=== PATIENT | female | born 1960 | race Two or more races ===

== ENCOUNTER 2017-03-27 11:36 | Observation (INO) | payer OTHER ==
[~2017-03-27] VITALS: Ht 152.4 cm; Wt 111.6 kg
[2017-03-27 12:30] LABS: Basophils # (auto) 0 uL; Basophils % (auto) 0.4 % (0.0-2.0); Eosinophils # (auto) 0.1 uL; Eosinophils % (auto) 1.8 % (0.0-7.0); Hematocrit 48.7 % (36.0-46.0); Hemoglobin 16.2 g/dL (12.2-16.2); Lymphocytes # (auto) 1.4 uL; Lymphocytes % (auto) 23.9 % (10.0-50.0); Mean Corpuscular Hemoglobin 31.1 pg (28.0-32.0); Mean Corpuscular Hgb Conc. 33.2 g/dL (32.0-36.0); Mean Corpuscular Volume 93.7 fL (80.0-100.0); Monocytes # (auto) 0.3 uL; Monocytes % (auto) 5.2 % (0.0-12.0); Neutrophils % (auto) 68.7 % (37.0-80.0); Nucleated Red Blood Cells % 0.1 %; Platelet Count (auto) 186 10^3/uL (140-450); Red Cell Distribution Width 14.2 % (11.8-14.3); White Blood Cell 5.9 10^3/uL (4.4-10.8)
[2017-03-27 12:55] LABS: Alanine Aminotransferase 26 U/L (13-56); Albumin 3.7 g/dL (3.4-5.0); Alkaline Phosphatase 85 U/L (45-117); Anion Gap 5 (5-15); Aspartate Aminotransferase 17 U/L (15-37); BUN/Creatinine Ratio 14.5; Bilirubin, Total 1.1 mg/dL (0.2-1.0); Blood Urea Nitrogen 8 mg/dL (7-18); Calcium 8.6 mg/dL (8.5-10.1); Carbon Dioxide 27 mmol/L (21-32); Chloride 108 mmol/L (98-107); GFR African American 146 mL/min; GFR Non-African American 121 mL/min; Glucose 83 mg/dL (74-106); Magnesium 2.9 mg/dL (1.6-2.6); Potassium 4.5 mmol/L (3.5-5.1); Sodium 140 mmol/L (136-145); Total Protein 7.5 g/dL (6.4-8.2)
[2017-03-27 14:59] LABS: INR 0.95 (0.9-1.15); Partial Thromboplastin Time 27.3 sec (22.64-33.71); Prothrombin Time 10.3 sec (9.37-12.3)
[2017-03-27 16:54] LABS: Urine Bacteria FEW /hpf (None Seen); Urine Blood Negative /uL (Negative); Urine Mucus FEW (None Seen); Urine Specific Gravity 1.008 (1.001-1.035); Urine WBC <1 /hpf (0 - 5)
[2017-03-27 17:09] VITALS: BP 126/72
== END 2017-03-27 17:25 | disposition home or self-care (01) | DRG 312 ==
LOC: ER 11:36 → OVERFLOW 13:52 → ER 17:25
PROVIDERS: ADMIT Family Medicine; ATTEND Family Medicine
DX: R55 Syncope and collapse (principal); E11.9 Type 2 diabetes mellitus without complications; I10 Essential (primary) hypertension; G43.909 Migraine, unspecified, not intractable, without status migrainosus; W19.XXXA Unspecified fall, initial encounter; Y93.89 Activity, other specified; Y92.89 Other specified places as the place of occurrence of the external cause; Y99.8 Other external cause status; Z98.84 Bariatric surgery status; Z82.49 Family history of ischemic heart disease and other diseases of the circulatory system
CPT/HCPCS: 36415; 70450; 71045; 80053; 81001; 82962; 83735; 84484; 85025; 85610; 85730; 93005; 99285; G0378

== ENCOUNTER 2019-09-09 00:24 | Emergency (ER) | payer OTHER ==
[~2019-09-09] VITALS: Ht 152.4 cm; Wt 104.3 kg
[2019-09-09] MEDS ORDERED: ONDANSETRON ODT 4 MG TAB PO ONE (02:15)
[2019-09-09] MEDS ORDERED: HYDROcodone-ACET 5/325MG TAB PO ONE (02:15)
[2019-09-09 03:03] VITALS: BP 118/77
== END 2019-09-09 05:09 | disposition home or self-care (01) ==
LOC: ER 00:24 → EDBD 00:24 → ER 05:09
DX: S16.1XXA Strain of muscle, fascia and tendon at neck level, initial encounter (principal); S39.012A Strain of muscle, fascia and tendon of lower back, initial encounter; M48.062 Spinal stenosis, lumbar region with neurogenic claudication; E11.9 Type 2 diabetes mellitus without complications; V43.52XA Car driver injured in collision with other type car in traffic accident, initial encounter; Y93.I9 Activity, other involving external motion; Y92.410 Unspecified street and highway as the place of occurrence of the external cause; Y99.8 Other external cause status
CPT/HCPCS: 70450; 72125; 72131; 72192; 99285; Q0162

== ENCOUNTER 2019-10-19 12:30 | Emergency (ER) | payer OTHER ==
[~2019-10-19] VITALS: Ht 152.4 cm; Wt 104.8 kg
[2019-10-19 13:19] VITALS: BP 134/50
== END 2019-10-19 13:33 | disposition home or self-care (01) ==
LOC: ER 12:30
DX: Z48.03 Encounter for change or removal of drains (principal); E11.9 Type 2 diabetes mellitus without complications; Z98.890 Other specified postprocedural states

== ENCOUNTER 2022-04-17 19:11 | Inpatient (IN) | payer OTHER ==
[~2022-04-17] VITALS: Ht 152.4 cm; Wt 110.0 kg
[2022-04-17] MEDS ORDERED: IOHEXOL 350 MG/ML 100ML IJ ONE (19:56)
[2022-04-17 20:24] LABS: Basophils # (auto) 0.1 10 ^3/uL (0-0.2); Eosinophils # (auto) 0.1 10 ^3/uL (0-0.8); Eosinophils % (auto) 1.2 % (0.0-7.0); Hematocrit 42.5 % (36.0-46.0); Lymphocytes # (auto) 1.8 10 ^3/uL (0.4-5.4); Lymphocytes % (auto) 28.6 % (10.0-50.0); Mean Corpuscular Hemoglobin 30.7 pg (28.0-32.0); Mean Corpuscular Volume 93.1 fL (80.0-100.0); Monocytes # (auto) 0.4 10 ^3/uL (0-1.3); Monocytes % (auto) 5.6 % (0.0-12.0); Neutrophils % (auto) 63.6 % (37.0-80.0); Nucleated Red Blood Cells % 0.2 %; Red Blood Cells 4.56 10^6/uL (4.0-5.20); Red Cell Distribution Width 14.6 % (11.8-14.3); White Blood Cell 6.4 10^3/uL (4.4-10.8)
[2022-04-17 20:52] LABS: INR 0.92 (0.9-1.15); Partial Thromboplastin Time 27.8 sec (24.6-33.4)
[2022-04-17 21:21] LABS: Albumin 3.2 g/dL (3.4-5.0); Calcium 8.4 mg/dL (8.5-10.1); Magnesium 2.4 mg/dL (1.6-2.6); Potassium 4.5 mmol/L (3.5-5.1)
[2022-04-17 21:25] LABS: BUN/Creatinine Ratio 25.3; Bilirubin, Total 0.6 mg/dL (0.2-1.0); Total Protein 6.3 g/dL (6.4-8.2)
[2022-04-18 01:36] LABS: Urine Bacteria NONE SEEN /hpf (None Seen); Urine Blood Negative /uL (Negative); Urine Mucus FEW (None Seen); Urine WBC 1 /hpf (0 - 5)
[2022-04-18 02:03] LABS: Alcohol, Urine < 3.0 mg/dL (0-10); Amphetamine Screen, Urine NEGATIVE (NEGATIVE); Barbiturate Scree,Urine NEGATIVE (NEGATIVE); Benzodiazephine Screen, Urine NEGATIVE (NEGATIVE); Cannabinoid Screen, Urine POSITIVE (NEGATIVE); Cocaine Screen, Urine NEGATIVE (NEGATIVE); Opiate Scree,Urine NEGATIVE (NEGATIVE); Phencyclidine Screen, Urine NEGATIVE (NEGATIVE)
[2022-04-18] MEDS ORDERED: MORPHINE SULFATE INJ 2 MG/ml SYRG IV PRN (05:00)
[2022-04-18] MEDS ORDERED: NITROGLYCERIN 0.4 MG SL TAB SL PRN (05:00)
[2022-04-18] MEDS ORDERED: ACETAMINOPHEN 325 MG TAB PO PRN (05:00)
[2022-04-18] MEDS ORDERED: DEXTROSE (50%) 50ML SYRG IV PRN (05:00)
[2022-04-18] MEDS ORDERED: DOCUSATE SOD 100 MG CAP PO PRN (05:00)
[2022-04-18 06:12] LABS: Basophils # (auto) 0 10 ^3/uL (0-0.2); Basophils % (auto) 0.6 % (0.0-2.0); Eosinophils # (auto) 0.1 10 ^3/uL (0-0.8); Eosinophils % (auto) 2.5 % (0.0-7.0); Hematocrit 38.5 % (36.0-46.0); Hemoglobin 13.2 g/dL (12.2-16.2); Lymphocytes # (auto) 1.7 10 ^3/uL (0.4-5.4); Mean Corpuscular Hemoglobin 31.5 pg (28.0-32.0); Mean Corpuscular Hgb Conc. 34.2 g/dL (32.0-36.0); Mean Corpuscular Volume 92.1 fL (80.0-100.0); Monocytes # (auto) 0.3 10 ^3/uL (0-1.3); Monocytes % (auto) 5.8 % (0.0-12.0); Neutrophils # (auto) 2.7 10 ^3/uL (1.6-8.6); Neutrophils % (auto) 56.1 % (37.0-80.0); Nucleated Red Blood Cells % 0.2 %; Red Blood Cells 4.19 10^6/uL (4.0-5.20); Red Cell Distribution Width 14.2 % (11.8-14.3); White Blood Cell 4.8 10^3/uL (4.4-10.8)
[2022-04-18] MEDS: SODIUM CHLOR 0.9% PF (SALINE LOCK) 10ML VIAL/SYR IV SCH ×3 (06:14→21:34)
[2022-04-18 06:35] LABS: Potassium 3.9 mmol/L (3.5-5.1)
[2022-04-18] MEDS: ACCU-CHEK COMFORT CURVE STRIP VI SCH ×4 (06:42→21:37)
[2022-04-18] MEDS: InsuLIN REG 1unit/0.01ml Soln (100units/ml) SC SCH ×4 (06:42→21:36)
[2022-04-18 07:06] LABS: Albumin 2.9 g/dL (3.4-5.0); BUN/Creatinine Ratio 26.5; Calcium 8.4 mg/dL (8.5-10.1)
[2022-04-18 07:09] LABS: Total Protein 5.6 g/dL (6.4-8.2)
[2022-04-18] MEDS: FAMOTIDINE (10MG/ML) 2ML VL IV SCH ×2 (08:50→21:34)
[2022-04-18] MEDS: ASPirin 81 mg TAB PO SCH (08:50)
[2022-04-18] MEDS: SERTRALINE HCL 50 MG TAB PO SCH (08:51)
[2022-04-18 17:42] VITALS: BP 125/80
[2022-04-18] MEDS ORDERED: LISI2.5T47 PO (18:26)
[2022-04-18] MEDS ORDERED: BUSP15TA60 PO (18:26)
[2022-04-18] MEDS ORDERED: OLAN15TA31 PO (18:26)
[2022-04-18] MEDS ORDERED: SERT-160 PO (18:26)
[2022-04-18] MEDS ORDERED: PREG-109 PO (18:26)
[2022-04-18] MEDS ORDERED: BUSP15TA90 PO (18:26)
[2022-04-18] MEDS ORDERED: TRAZ100T3 PO (18:26)
[2022-04-18] MEDS: ATORVASTATIN 20 MG TAB PO SCH (21:34)
[2022-04-18 21:51] VITALS: BP 109/66
[2022-04-18] MEDS: HYDROcodone-ACET 5/325MG TAB PO PRN (22:45)
[2022-04-19 04:42] VITALS: BP 131/82
[2022-04-19 06:09] LABS: Basophils # (auto) 0.1 10 ^3/uL (0-0.2); Basophils % (auto) 1.8 % (0.0-2.0); Eosinophils # (auto) 0.1 10 ^3/uL (0-0.8); Eosinophils % (auto) 2.3 % (0.0-7.0); Hematocrit 40.3 % (36.0-46.0); Hemoglobin 13.6 g/dL (12.2-16.2); Lymphocytes # (auto) 1.4 10 ^3/uL (0.4-5.4); Lymphocytes % (auto) 28.8 % (10.0-50.0); Mean Corpuscular Hemoglobin 31.1 pg (28.0-32.0); Mean Corpuscular Hgb Conc. 33.7 g/dL (32.0-36.0); Mean Corpuscular Volume 92.3 fL (80.0-100.0); Monocytes # (auto) 0.3 10 ^3/uL (0-1.3); Monocytes % (auto) 5.2 % (0.0-12.0); Neutrophils % (auto) 61.9 % (37.0-80.0); Nucleated Red Blood Cells % 0.1 %; Red Blood Cells 4.37 10^6/uL (4.0-5.20); Red Cell Distribution Width 14.2 % (11.8-14.3); White Blood Cell 4.9 10^3/uL (4.4-10.8)
[2022-04-19] MEDS: SODIUM CHLOR 0.9% PF (SALINE LOCK) 10ML VIAL/SYR IV SCH ×3 (06:14→20:58)
[2022-04-19] MEDS: ACCU-CHEK COMFORT CURVE STRIP VI SCH ×4 (06:15→21:03)
[2022-04-19] MEDS: InsuLIN REG 1unit/0.01ml Soln (100units/ml) SC SCH ×4 (06:15→22:00)
[2022-04-19 06:36] LABS: Potassium 3.6 mmol/L (3.5-5.1)
[2022-04-19 06:40] LABS: Albumin 2.7 g/dL (3.4-5.0); BUN/Creatinine Ratio 20.3; Calcium 8.6 mg/dL (8.5-10.1)
[2022-04-19 06:43] LABS: Bilirubin, Total 1.2 mg/dL (0.2-1.0); Total Protein 5.8 g/dL (6.4-8.2)
[2022-04-19 08:00] VITALS: BP 130/88
[2022-04-19] MEDS: FAMOTIDINE (10MG/ML) 2ML VL IV SCH ×2 (08:53→20:58)
[2022-04-19] MEDS: ASPirin 81 mg TAB PO SCH (08:53)
[2022-04-19] MEDS: SERTRALINE HCL 50 MG TAB PO SCH (08:54)
[2022-04-19] MEDS: HYDROcodone-ACET 5/325MG TAB PO PRN ×2 (08:54→14:56)
[2022-04-19] MEDS: ONDANSETRON HCL 4 MG/2 ML VIAL IV PRN ×2 (08:58→14:59)
[2022-04-19 09:00] VITALS: BP 130/66
[2022-04-19 13:00] VITALS: BP 130/88
[2022-04-19 17:00] VITALS: BP 134/84
[2022-04-19] MEDS: ATORVASTATIN 20 MG TAB PO SCH (20:57)
[2022-04-19 21:53] VITALS: BP 132/81
[2022-04-19] MEDS ORDERED: traZODone HCL 50 MG TAB PO ONE (23:30)
[2022-04-20 04:44] VITALS: BP 144/82
[2022-04-20 06:21] LABS: Cholesterol 98 mg/dL (< 200); Triglycerides 68 mg/dL (< 150)
[2022-04-20 06:23] LABS: HDL Cholesterol 66 mg/dL (40-59); LDL Cholesterol 39 mg/dL (< 100)
[2022-04-20] MEDS: SODIUM CHLOR 0.9% PF (SALINE LOCK) 10ML VIAL/SYR IV SCH ×3 (06:48→22:01)
[2022-04-20] MEDS: ACCU-CHEK COMFORT CURVE STRIP VI SCH ×4 (06:48→21:40)
[2022-04-20] MEDS: InsuLIN REG 1unit/0.01ml Soln (100units/ml) SC SCH ×4 (06:48→21:40)
[2022-04-20 09:11] VITALS: BP 128/81
[2022-04-20] MEDS: FAMOTIDINE (10MG/ML) 2ML VL IV SCH ×2 (09:30→22:01)
[2022-04-20] MEDS: PREGABALIN CAPSULE 75 MG CAP PO SCH ×2 (09:31→22:01)
[2022-04-20] MEDS: ASPirin 81 mg TAB PO SCH (09:33)
[2022-04-20] MEDS: HYDROcodone-ACET 5/325MG TAB PO PRN ×3 (09:44→19:27)
[2022-04-20] MEDS ORDERED: OLANZapine 5 MG TAB PO SCH (10:00)
[2022-04-20] MEDS ORDERED: LISINOPRIL 5 MG TAB PO SCH (10:00)
[2022-04-20] MEDS ORDERED: SERTRALINE HCL 50 MG TAB PO SCH (10:00)
[2022-04-20 13:00] VITALS: BP 117/83
[2022-04-20] MEDS: busPIRone HCL 10 MG TAB PO SCH ×2 (13:52→22:01)
[2022-04-20 17:09] VITALS: BP 113/71
[2022-04-20 22:00] VITALS: BP 118/83
[2022-04-20] MEDS ORDERED: traZODone HCL 50 MG TAB PO SCH (22:00)
[2022-04-20] MEDS: ATORVASTATIN 20 MG TAB PO SCH (22:01)
== END 2022-04-20 23:51 | disposition home or self-care (01) | DRG 92 ==
LOC: ER 19:11 → TELE 04-18 05:08 → TELE-CENTR 04-18 17:47
PROVIDERS: ADMIT Nurse Practitioner Family; ATTEND Internal Medicine Geriatric Medicine
DX: R20.0 Anesthesia of skin (principal); I50.32 Chronic diastolic (congestive) heart failure; Z68.42 Body mass index [BMI] 45.0-49.9, adult; E11.9 Type 2 diabetes mellitus without complications; E66.01 Morbid (severe) obesity due to excess calories; Z20.822 Contact with and (suspected) exposure to COVID-19; E78.5 Hyperlipidemia, unspecified; E88.09 Other disorders of plasma-protein metabolism, not elsewhere classified; I10 Essential (primary) hypertension; F17.200 Nicotine dependence, unspecified, uncomplicated; F31.9 Bipolar disorder, unspecified; I11.0 Hypertensive heart disease with heart failure; Z79.82 Long term (current) use of aspirin; Z83.3 Family history of diabetes mellitus; Z86.73 Personal history of transient ischemic attack (TIA), and cerebral infarction without residual deficits
CPT/HCPCS: 36415; 70450; 70496; 70551; 71045; 80053; 80061; 80307; 81001; 82962; 83036; 83735; 83880; 84484; 85025; 85610; 85730; 87426; 93005; 93306; 97110; 97116; 97163; 97530; G0378; J1815; J2405; J3490

== ENCOUNTER 2022-06-06 11:21 | Emergency (ER) | payer OTHER ==
[~2022-06-06] VITALS: Ht 172.7 cm; Wt 102.4 kg
[~2022-06-06 11:21] MED LIST: BUSP15TA90 PO; LISI2.5T47 PO; OLAN15TA31 PO; PREG-109 PO; SERT-160 PO; TRAZ100T3 PO
[2022-06-06 12:28] LABS: Urine Bacteria NONE SEEN /hpf (None Seen); Urine Blood Negative /uL (Negative); Urine Mucus FEW (None Seen); Urine Specific Gravity 1.015 (1.001-1.035); Urine WBC 1 /hpf (0 - 5)
[2022-06-06 12:51] LABS: Basophils # (auto) 0 10 ^3/uL (0-0.2); Basophils % (auto) 0.2 % (0.0-2.0); Eosinophils # (auto) 0 10 ^3/uL (0-0.8); Hematocrit 48.3 % (36.0-46.0); Lymphocytes # (auto) 1.1 10 ^3/uL (0.4-5.4); Lymphocytes % (auto) 15.2 % (10.0-50.0); Mean Corpuscular Hgb Conc. 33.1 g/dL (32.0-36.0); Mean Corpuscular Volume 90.7 fL (80.0-100.0); Monocytes # (auto) 0.3 10 ^3/uL (0-1.3); Monocytes % (auto) 3.6 % (0.0-12.0); Neutrophils # (auto) 5.6 10 ^3/uL (1.6-8.6); Nucleated Red Blood Cells % 0.1 %; Red Blood Cells 5.32 10^6/uL (4.0-5.20); Red Cell Distribution Width 13.4 % (11.8-14.3)
[2022-06-06] MEDS ORDERED: MECLIZINE HCL 25 MG TAB PO ONE (13:30)
[2022-06-06 13:46] LABS: Calcium 9.4 mg/dL (8.5-10.1); Potassium 3.5 mmol/L (3.5-5.1)
[2022-06-06 13:50] LABS: BUN/Creatinine Ratio 15.1 (10.0-20.0); Bilirubin, Total 2.3 mg/dL (0.2-1.0); Total Protein 6.8 g/dL (6.4-8.2)
[2022-06-06] MEDS ORDERED: ONDA-144 PO (17:12)
[2022-06-06] MEDS ORDERED: MECL25CH38 PO (17:12)
[2022-06-06 18:23] VITALS: BP 138/86
== END 2022-06-06 18:25 | disposition home or self-care (01) ==
LOC: ER 11:21
DX: R55 Syncope and collapse (principal); F32.9 Major depressive disorder, single episode, unspecified; E11.9 Type 2 diabetes mellitus without complications; I10 Essential (primary) hypertension; Z86.73 Personal history of transient ischemic attack (TIA), and cerebral infarction without residual deficits; Z90.49 Acquired absence of other specified parts of digestive tract; Z90.89 Acquired absence of other organs; Z98.890 Other specified postprocedural states
CPT/HCPCS: 36415; 70450; 71045; 80053; 81001; 82962; 83880; 84484; 85025; 93005; 99285; J8597

== ENCOUNTER 2023-01-20 13:47 | Inpatient (IN) | payer OTHER ==
[~2023-01-20] VITALS: Ht 144.8 cm; Wt 81.0 kg
[~2023-01-20 13:47] MED LIST changes: +MECL25CH38 PO; +ONDA-144 PO; +TRAZ-228 PO; -TRAZ100T3 PO
[2023-01-20] MEDS ORDERED: IOHEXOL 350 MG/ML 100ML IJ ONE (14:08)
[2023-01-20 14:35] VITALS: PULSE 51; RESP 12; O2SAT 95
[2023-01-20 15:34] LABS: Basophils # (auto) 0 10 ^3/uL (0-0.2); Basophils % (auto) 0.3 % (0.0-2.0); Eosinophils # (auto) 0.1 10 ^3/uL (0-0.8); Hemoglobin 14.1 g/dL (12.2-16.2); Lymphocytes # (auto) 1.5 10 ^3/uL (0.4-5.4); Lymphocytes % (auto) 21.9 % (10.0-50.0); Mean Corpuscular Hemoglobin 30.3 pg (28.0-32.0); Mean Corpuscular Hgb Conc. 32.8 g/dL (32.0-36.0); Mean Corpuscular Volume 92.5 fL (80.0-100.0); Monocytes # (auto) 0.4 10 ^3/uL (0-1.3); Monocytes % (auto) 6.2 % (0.0-12.0); Neutrophils % (auto) 70.6 % (37.0-80.0); Nucleated Red Blood Cells % 0.1 %; Red Blood Cells 4.65 10^6/uL (4.0-5.20); Red Cell Distribution Width 13.9 % (11.8-14.3)
[2023-01-20 15:46] LABS: Alanine Aminotransferase 37 U/L (7-40); Albumin 3.8 g/dL (3.2-4.8); Alkaline Phosphatase 113 U/L (46-116); Anion Gap 5 (5-15); Aspartate Aminotransferase 49 U/L (13-40); BUN/Creatinine Ratio 32.9 (10.0-20.0); Bilirubin, Total 1.1 mg/dL (0.2-1.0); Blood Urea Nitrogen 24 mg/dL (9-23); Calcium 8.3 mg/dL (8.7-10.4); Carbon Dioxide 26 mmol/L (20-30); Chloride 110 mmol/L (98-107); Glucose 99 mg/dL (74-106); INR 1.03 (0.9-1.15); Magnesium 2.2 mg/dL (1.6-2.6); Partial Thromboplastin Time 27.3 SEC (24.5-34.5); Potassium 4.4 mmol/L (3.5-5.1); Prothrombin Time 10.8 sec (9.3-11.8); Sodium 141 mmol/L (136-145)
[2023-01-20 15:53] LABS: Total Protein 5.8 g/dL (5.7-8.2)
[2023-01-20 19:35] VITALS: PULSE 50; RESP 18; O2SAT 98
[2023-01-20] MEDS ORDERED: ONDANSETRON HCL 4 MG/2 ML VIAL IV PRN (20:45)
[2023-01-20] MEDS ORDERED: ACETAMINOPHEN 325 MG TAB PO PRN (20:45)
[2023-01-20] MEDS ORDERED: LORazepam 2MG/ML-1ML VIAL IV PRN (21:45)
[2023-01-20 21:48] LABS: Triglycerides 65 mg/dL (< 150)
[2023-01-20 21:49] LABS: LDL Cholesterol 47 mg/dL (< 100)
[2023-01-20 21:50] LABS: Cholesterol 119 mg/dL (< 200); HDL Cholesterol 62 mg/dL (40-59)
[2023-01-20 22:25] LABS: Urine Bacteria NONE SEEN /hpf (None Seen); Urine Blood Negative /uL (Negative); Urine Clarity Clear (Clear); Urine Color Yellow (Yellow); Urine Mucus FEW (None Seen); Urine Protein, UAD TRACE (Negative); Urine Urobilinogen Normal (Negative); Urine WBC 3 /hpf (0 - 5)
[2023-01-20 22:40] LABS: Urine Specific Gravity > 1.050 (1.001-1.035)
[2023-01-20 23:39] VITALS: BP 123/74; PULSE 49; RESP 18; TEMP 97.7; O2SAT 98
[2023-01-21 05:00] VITALS: BP 122/72; PULSE 51; RESP 18; TEMP 98.1; O2SAT 96
[2023-01-21 07:12] LABS: Chloride 111 mmol/L (98-107); Potassium 3.5 mmol/L (3.5-5.1); Sodium 142 mmol/L (136-145)
[2023-01-21 07:13] LABS: Anion Gap 7 (5-15); Calcium 8.9 mg/dL (8.5-10.1); Carbon Dioxide 24 mmol/L (20-30)
[2023-01-21 07:18] LABS: BUN/Creatinine Ratio 20.3 (10.0-20.0); Blood Urea Nitrogen 14 mg/dL (9-23); Glucose 86 mg/dL (74-106)
[2023-01-21 07:20] LABS: Basophils # (auto) 0 10 ^3/uL (0-0.2); Basophils % (auto) 0.5 % (0.0-2.0); Eosinophils # (auto) 0.1 10 ^3/uL (0-0.8); Eosinophils % (auto) 1.2 % (0.0-7.0); Hematocrit 42.7 % (36.0-46.0); Hemoglobin 14.2 g/dL (12.2-16.2); Lymphocytes # (auto) 1.6 10 ^3/uL (0.4-5.4); Lymphocytes % (auto) 27.7 % (10.0-50.0); Mean Corpuscular Hemoglobin 30.4 pg (28.0-32.0); Mean Corpuscular Hgb Conc. 33.2 g/dL (32.0-36.0); Mean Corpuscular Volume 91.5 fL (80.0-100.0); Monocytes # (auto) 0.3 10 ^3/uL (0-1.3); Monocytes % (auto) 5.9 % (0.0-12.0); Neutrophils # (auto) 3.7 10 ^3/uL (1.6-8.6); Neutrophils % (auto) 64.7 % (37.0-80.0); Nucleated Red Blood Cells % 0.1 %; Red Blood Cells 4.67 10^6/uL (4.0-5.20); Red Cell Distribution Width 14.2 % (11.8-14.3); White Blood Cell 5.7 10^3/uL (4.4-10.8)
[2023-01-21 08:00] VITALS: RESP 16; O2SAT 97
[2023-01-21 09:00] VITALS: BP_SYST 128; BP_SYST 129; BP_DIAS 59; BP_DIAS 76; PULSE 54; PULSE 88; RESP 16; RESP 18; TEMP 98.2; TEMP 98.5; O2SAT 97; O2SAT 98
[2023-01-21] MEDS ORDERED: ENOXAPARIN SOD 40 MG/0.4 ML SYRINGE SC SCH (10:00)
[2023-01-21] MEDS ORDERED: ASPirin 81 mg TAB PO SCH (10:00)
[2023-01-21] MEDS ORDERED: LISINOPRIL 5 MG TAB PO SCH (10:00)
[2023-01-21] MEDS ORDERED: SERTRALINE HCL 50 MG TAB PO SCH (10:00)
[2023-01-21 13:20] VITALS: BP 126/79; PULSE 49; RESP 16; TEMP 97.5; O2SAT 99
[2023-01-21] MEDS ORDERED: ASPI-325 PO (14:48)
[2023-01-21 16:14] VITALS: BP 126/79; RESP 16; TEMP 97.5; O2SAT 99
== END 2023-01-21 17:40 | disposition home or self-care (01) | DRG 149 ==
LOC: ER 13:47 → OVERFLOW 20:48 → WEST WING 22:38
PROVIDERS: ADMIT Nurse Practitioner; ATTEND Internal Medicine Geriatric Medicine
DX: R42 Dizziness and giddiness (principal); E11.9 Type 2 diabetes mellitus without complications; E66.9 Obesity, unspecified; F31.9 Bipolar disorder, unspecified; M54.50 Low back pain, unspecified; R47.81 Slurred speech; F41.9 Anxiety disorder, unspecified; G89.29 Other chronic pain; I10 Essential (primary) hypertension; M79.7 Fibromyalgia; Z79.82 Long term (current) use of aspirin; Z68.38 Body mass index [BMI] 38.0-38.9, adult; Z87.891 Personal history of nicotine dependence; Z83.3 Family history of diabetes mellitus; Z86.73 Personal history of transient ischemic attack (TIA), and cerebral infarction without residual deficits; Z90.49 Acquired absence of other specified parts of digestive tract
CPT/HCPCS: 36415; 70450; 70496; 70551; 71045; 80048; 80053; 80061; 81001; 82140; 83605; 83735; 83880; 84484; 85025; 85610; 85730; 93005; 93306; 93886; 97163; G0378; J2405

== ENCOUNTER 2024-05-08 18:29 | Emergency (ER) | payer OTHER, MEDICAID ==
[~2024-05-08] VITALS: Ht 152.4 cm; Wt 91.0 kg
[~2024-05-08 18:29] MED LIST changes: +ASPI-325 PO; -PREG-109 PO; +PREG75CA90 PO
--- NOTE | 2024-05-08 21:08 | DVH ---
EXAM: XY L KNEE 3V XRAY DATE OF SERVICE: 05/08/2024 08:39 PM ORDERING PHYSICIAN: KELLEY ADAMS REASON FOR EXAM: FALL TECHNIQUE: 4 images left knee COMPARISON: None FINDINGS: Narrowing of the medial compartment of the left knee and patellofemoral joint consistent wi th arthritic changes IMPRESSION: 1. Arthritic changes medial compartment and patellofemoral joint no acute fracture
--- NOTE | 2024-05-08 22:09 | ED.PDOC ---
Lo. trauma (HPI) HPI Comments 63 y.o female presents to the ED for a chief complaint of neck, left lower back and left hip pain s/p fall today. Patient reports she slipped and fell around noon, states she took her pain medication that she usually takes for arthritis, at home and had relief. Patient reports once pain medication wore up, left sided lower back and hip pain came back with some soreness to the posterior aspect of the neck. Patient denies any LOC, head injuries, head pain, nausea, vomiting, dizziness, chest pain or SOB. Chief Complaint: Lower Extremity Time Seen by MD: 18:51 Primary Care Provider: shorty Reviewed notes: Nurses Notes, Medications, Allergies Allergies: Coded Allergies: NO KNOWN ALLERGIES (Unverified , 10/19/19) Home Meds Active Scripts Aspirin (Aspirin Low Dose) 81 Mg Tab, 81 MG PO DAILY for 100 Days, #100 TAB Prov:MARIA DEL ROSARIO CALLOWAY MD 01/21/23 Ondansetron (Zofran) 4 Mg Tab, 4 MG PO Q8HPRN PRN, #14 MG Prov:JACLYN BRADY MD 06/06/22 Meclizine HCl (Meclizine) 25 Mg Chw, 25 MG PO Q8HPRN PRN, #14 CHW Prov:JACLYN BRADY MD 06/06/22 Reported Medications Buspirone HCl (Buspirone Hydrochloride) 15 Mg Tab, 1 TAB PO TID 04/18/22 Lisinopril (Lisinopril) 2.5 Mg Tab, 1 TAB PO DAILY 04/18/22 Olanzapine (OLANZAPINE) 15 Mg Tab, 1 TAB PO 04/18/22 Pregabalin (Pregabalin) 75 Mg Cap, 1 CAP PO BID 04/18/22 Trazodone Hcl (Trazodone Hcl) 100 Mg Tab, 1 TAB PO 04/18/22 Sertraline Hcl (Sertraline Hcl) 100 Mg Tab, 1 TAB PO DAILY 04/18/22 Information Source: Patient Mode of Arrival: Ambulatory Severity: Moderate Timing: Hours Duration: Since onset Location: Back, (L) Hip Location of laceration: None Mechanism: Fall Associated signs and symtoms: Other Past Medical History PAST MEDICAL HISTORY: CVA, Depression, DM, HTN, TIA Surgical History: Cholecystectomy, , Tonsillectomy 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 Family History Family History: Reviewed,noncontributory to illness Social History Smoker: Non-Smoker Alcohol: Denies ETOH Use Drugs: Denies Drug Use Lives In: Home Constitutional: denies: chills, diaphoresis, fatigue, fever, malaise, sweats, weakness, others EENTM: denies: blurred vision, double vision, ear bleeding, ear discharge, ear drainage, ear pain, ear ringing, eye pain, eye redness, hearing loss, mouth pain, mouth swelling, nasal discharge, nose bleeding, nose congestion, nose pain, photophobia, tearing, throat pain, throat swelling, voice changes, others Respiratory: denies: cough, hemoptysis, orthopnea, SOB at rest, shortness of breath, SOB with excertion, stridor, wheezing, others Cardiovascular: denies: chest pain, dizzy spells, diaphoresis, Dyspnea on exertion, edema, irregular heart beat, left arm pain, lightheadedness, palpitations, PND, syncope, others Gastrointestinal: denies: abdomen distended, abdominal pain, blood streaked bowels, constipated, diarrhea, dysphagia, difficulty swallowing, hematemesis, melena, nausea, poor appetite, poor fluid intake, rectal bleeding, rectal pain, vomiting, others Genitourinary: denies: abnormal vagina bleeding, burning, dyspareunia, dysuria, flank pain, frequency, hematuria, incontinence, pain, , vagina discharge, urgency, others Neurological: denies: dizziness, fainting, headache, left sided numbness, left sided weakness, numbness, paresthesia, pre-existing deficit, right sided numbness, right sided weakness, seizure, speech problems, tingling, tremors, weakness, others Musculoskeletal: reports: back pain, others (left hip pain ); denies: gout, joint pain, joint swelling, muscle pain, muscle stiffness, neck pain Integumetry: denies: bruises, change in color, change in hair/nails, dryness, laceration, lesions, lumps, rash, wounds, others Allergic/Immunocompromised: denies: Difficulty Healing, Frequent Infections, Hives, Itching, others Hematologic/Lymphatic: denies: anemia, blood clots, easy bleeding, easy bruising, swollen glands, others Endocrine: denies: excessive hunger, excessive sweating, excessive thirst, excessive urination, flushing, intolerance to cold, intolerance to heat, unexplained weight gain, unexplained weight loss, others Psychiatric: denies: anxiety, bipolar disorder, depression, hopeless, panic disorder, schizophrenia, sleepless, suicidal, others All Other Systems: Reviewed and Negative Physical Exam General Appearance: No Apparent Distress, Normal HEENT: Normal ENT Inspection, Pharynx Normal, TMs Normal Neck: Full Range of Motion, Non-Tender, Normal, Normal Inspection Respiratory: Chest Non-Tender, Lungs Clear, No Accessory Muscle Use, No Respiratory Distress, Normal Breath Sounds Cardiovascular: No Edema, No JVD, No Murmur, No Gallop, Normal Peripheral Pulses, Regular Rate/Rhythm Breast Exam: Deferred Gastrointestinal: No Organomegaly, Non Tender, No Pulsatile Mass, Normal Bowel Sounds, Soft Genitalia: Deferred Pelvic: Deferred Rectal: Deferred Extremities: No calf tenderness, Normal capillary refill, Normal inspection, Normal range of motion, Non-tender, No pedal edema Musculoskeletal : Location: Left Extremity Location: Back, Hip Apperance: Tenderness: Moderate 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, breakdown person II-XII nml as Tested, No Motor Deficits, Normal Affect, Normal Mood, No Sensory Deficits Cerebellar Function: Normal Reflexes: Normal Skin: Dry, Normal Color, Warm Lymphatic: No Adenopathy Was a procedure done? Was a procedure done?: No Differential Diagnosis Multiple Trauma: Fractures, Contusion Neck Injury: Cervical Muscle Spasm, Cervical Sprain, Cervical Strain X-Ray, Labs, Meds, VS Vital Signs Date Time Temp Pulse Resp B/P (MAP) Pulse Ox O2 Delivery O2 Flow Rate FiO2 05/08/24 22:32 97.8 71 18 126/71 (89) 98 97.8 05/08/24 22:32 71 19 98 Room Air 05/08/24 18:54 97.8 78 18 132/94 (107) 92 97.8 X-Ray, Labs, Meds, VS Comment CT lumbar spine shows no subluxations it does show L2 endplate mild compression fracture however on exam patient has no discomfort on palpation over L2-L1 spine. This is likely chronic in nature. Advised to follow up with her primary care doctor if symptoms persist recommend an MRI. X-ray of right knee left hip shows no acute fractures, dislocations, or osseous lesions. Likely sprain and contusion status post fall. Patient does report relief in pain requesting discharge at this time currently ambulates with a walker. Advised to rest increase p.o. fluids patient does have pain medication at home for chronic pain she states it does help advised to take it as prescribed. Advised on ER return precautions patient indicates understanding agrees with discharge plan of care. Time of 1ST Reevaluation: 22:11 Reevaluation 1ST: Unchanged Patient Education/Counseling: Diagnosis, Treatment, Prognosis Family Education/Counseling: No Family Present Departure 1 Departure Time of Disposition: 22:48 Impression: Primary Impression: Contusion of right knee and lower leg Qualified Codes: S80.01XA - Contusion of right knee, initial encounter; S80.11XA - Contusion of right lower leg, initial encounter Additional Impressions: Strain of left hip Qualified Codes: S76.012A - Strain of muscle, fascia and tendon of left hip, initial encounter Lumbar back sprain Qualified Codes: S33.5XXA - Sprain of ligaments of lumbar spine, initial encounter Compression fracture of L2 Qualified Codes: S32.020A - Wedge compression fracture of second lumbar vertebra, initial encounter for closed fracture Disposition: 01 HOME / SELF CARE / HOMELESS Condition: Stable Discharged With: Friend Critical Care Note Critical Care Time?: No Stability Stability form required: No Heart Score Heart Score: Heart Score Response (Comments) Value History N/A 0 EKG N/A 0 Age N/A 0 Risk Factors N/A 0 Troponin N/A 0 Total 0 I personally scribed for JAM BRANDT DO ([email or web address]) on 05/08/24 at 22:14. Electronically submitted by Susana Awad ([facility]). KELLEY ADAMS May 08, 2024 22:09 JAM BRANDT DO May 08, 2024 22:14
[2024-05-08 22:32] VITALS: BP 126/71; PULSE 71; RESP 19; TEMP 97.8; O2SAT 98
--- NOTE | 2024-05-08 22:43 | DVH ---
XY L HIP COMPLETE XRAY, INDICATION: S/P FALL PAIN TECHNICAL DATA: Frontal and frog lateral views were obtained of the left hip.] COMPARISON: None Findings/ IMPRESSION: No obvious fracture or dislocation. Limited evaluation due to overlying body habitus. Moderate degene rative changes of the bilateral hip joints.
--- NOTE | 2024-05-08 22:46 | DVH ---
EXAM: XY LUMBAR SPINE 3 VIEW HISTORY: FALL/PAIN COMPARISON: None TECHNIQUE: AP and lateral views of the lumbar spine and spot lateral of the lumbosacral junction were performed. Findings/ IMPRESSION: Mild compression deformity involving the superior endplate of L2 of unknown chronicity. Grade 1 anter olisthesis of L4 on L5. Mild multilevel degenerative changes.
== END 2024-05-08 23:44 | disposition home or self-care (01) ==
LOC: ER 18:29
DX: S76.012A Strain of muscle, fascia and tendon of left hip, initial encounter (principal); S80.01XA Contusion of right knee, initial encounter; S80.11XA Contusion of right lower leg, initial encounter; I10 Essential (primary) hypertension; F32.A Depression, unspecified; E11.9 Type 2 diabetes mellitus without complications; Z79.82 Long term (current) use of aspirin; Z79.899 Other long term (current) drug therapy; Z86.73 Personal history of transient ischemic attack (TIA), and cerebral infarction without residual deficits; Z90.49 Acquired absence of other specified parts of digestive tract; Z90.89 Acquired absence of other organs; Z98.890 Other specified postprocedural states; W01.0XXA Fall on same level from slipping, tripping and stumbling without subsequent striking against object, initial encounter; Y93.89 Activity, other specified; Y92.89 Other specified places as the place of occurrence of the external cause; Y99.8 Other external cause status
CPT/HCPCS: 72100; 73502; 73562

== ENCOUNTER 2024-11-30 18:31 | Emergency (ER) | payer MEDICARE, MEDICAID ==
[~2024-11-30] VITALS: Ht 172.7 cm; Wt 95.4 kg
--- NOTE | 2024-11-30 18:43 | ED.PDOC ---
History of Present Illness HPI Comments 64 year old female, came to ER via EMS due to dizziness. Patient for the past 4 days has been having episodes of dizziness, with loose, non bloody diarrhea. On scene, blood pressure was 97/60 mmHg, blood sugar of 114. Patient was given IV fluids. Denies any vomiting, chest pains or shortness of breath PMH includes CVA, Depression, DM, HTN, TIA REVIEW OF SYSTEMS: General: No fever, no chills, or fatigue HEENT: No sore throat, no earache, no congestion, no neck pain. Cardiac: No chest pain. No palpitations. Lungs: No shortness of breath, no cough. GI: No nausea, no vomiting, (+) diarrhea, no constipation, no abdominal pain : No dysuria, frequency, or urgency. No hematuria. Musculoskeletal: No joint pain , no joint swelling, no extremity edema. Skin: No rash, no itching. Neuro: No headache, (+) dizziness, no weakness PHYSICAL EXAM: General: Awake, alert and oriented. No acute distress. Skin: Skin in warm, dry and intact. Appropriate color for ethnicity. HEENT: The head is normocephalic and atraumatic. Conjunctivae are clear without exudates or hemorrhage. Sclera is non-icteric. EOM are intact. No signs of nystagmus. Eyelids are normal in appearance without swelling or lesions. Oral mucosa is pink and moist Neck: The neck is supple with normal range of motion. No JVD. Cardiac: Heart rate and rhythm are normal. No murmurs, gallops, or rubs are auscultated. Respiratory: No signs of respiratory distress. Lung sounds are clear in all lobes bilaterally without rales, rhonchi, or wheezes. Abdominal: Abdomen is soft, non-tender without distention, guarding or rigidity. Bowel sounds are present and normoactive in all four quadrants. Extremities: Upper and lower extremities are atraumatic in appearance without deformity or edema. Neurological: The patient is awake, alert and oriented to person, place, and time with normal speech. Speech is clear. There is no facial asymmetry. Psychiatric: Appropriate mood and affect. Good judgement and insight. Chief Complaint: Dizziness Time Seen by MD: 18:38 Primary Care Provider: shorty Marquez Notes: Radio Repairman Notes Allergies: Coded Allergies: NO KNOWN ALLERGIES (Unverified , 10/19/19) Home Meds Active Scripts Aspirin (Aspirin Low Dose) 81 Mg Tab, 81 MG PO DAILY for 100 Days, #100 TAB Prov:MARIA DEL ROSARIO CALLOWAY MD 01/21/23 Ondansetron (Zofran) 4 Mg Tab, 4 MG PO Q8HPRN PRN, #14 MG Prov:JACLYN BRADY MD 06/06/22 Meclizine HCl (Meclizine) 25 Mg Chw, 25 MG PO Q8HPRN PRN, #14 CHW Prov:JACLYN BRADY MD 06/06/22 Reported Medications Buspirone HCl (Buspirone Hydrochloride) 15 Mg Tab, 1 TAB PO TID 04/18/22 Lisinopril (Lisinopril) 2.5 Mg Tab, 1 TAB PO DAILY 04/18/22 Olanzapine (OLANZAPINE) 15 Mg Tab, 1 TAB PO 04/18/22 Pregabalin (Pregabalin) 75 Mg Cap, 1 CAP PO BID 04/18/22 Trazodone Hcl (Trazodone Hcl) 100 Mg Tab, 1 TAB PO 04/18/22 Sertraline Hcl (Sertraline Hcl) 100 Mg Tab, 1 TAB PO DAILY 04/18/22 Information Source: Patient, Emergency Med Personnel Mode of Arrival: EMS Past Medical History PAST MEDICAL HISTORY: CVA, Depression, DM, HTN, TIA Surgical History: Cholecystectomy, , Tonsillectomy Surgical History (Other): knee surgery 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 Was a procedure done?: No Differential Dx Considerations may include: anemia, electrolyte imbalance, dehydration, gastroenteritis X-Ray, Labs, Meds, VS Vital Signs Date Time Temp Pulse Resp B/P (MAP) Pulse Ox O2 Delivery O2 Flow Rate FiO2 12/01/24 01:12 63 12 98/68 (78) 96 12/01/24 00:00 64 11/30/24 23:44 71 98/67 11/30/24 23:43 70 102/64 11/30/24 23:39 67 90/63 11/30/24 23:00 69 15 96/71 (79) 96 11/30/24 21:00 69 13 98/64 (75) 96 11/30/24 20:00 77 11/30/24 19:44 73 19 95 Room Air* 0 21 11/30/24 19:00 98.3 73 19 99/56 (70) 95 98.3 11/30/24 18:38 98.4 71 20 97/67 100 98.4 11/30/24 18:37 72 Lab Test 11/30/24 20:24 11/30/24 19:14 Range/Units Urine Color Yellow Yellow Urine Clarity Clear Clear Urine pH 5.5 5.0-9.0 Urine Specific [place] 1.014 1.001-1.035 Urine Protein Negative Negative Urine Ketones Negative Negative Urine Blood Negative Negative /uL Urine Nitrite Negative Negative Urine Bilirubin Negative Negative Urine Urobilinogen Normal Negative mg/dL Urine Leukocyte Esterase Negative Negative /uL Urine RBC <1 0 - 4 /hpf Urine Microscopic WBC < 1 0-5 /HPF Urine Squamous Epithelial Cells Few <5 /hpf Urine Bacteria None seen None Seen /hpf Urine Mucus Few None Seen Urine Glucose Normal Normal mg/dL White Blood Count 6.4 4.4-10.8 10^3/uL Red Blood Count 4.55 4.0-5.20 10^6/uL Hemoglobin 12.8 12.2-16.2 g/dL Hematocrit 39.4 36.0-46.0 % Mean Corpuscular Volume 86.5 80.0-100.0 fL Mean Corpuscular Hemoglobin 28.0 28.0-32.0 pg Mean Corpuscular Hemoglobin Concent 32.4 32.0-36.0 g/dL Red Cell Distribution Width 16.7 H 11.8-14.3 % Platelet Count 186 140-450 10^3/uL Mean Platelet Volume 8.1 6.9-10.8 fL Neutrophils (%) (Auto) 51.9 37.0-80.0 % Lymphocytes (%) (Auto) 35.4 10.0-50.0 % Monocytes (%) (Auto) 8.8 0.0-12.0 % Eosinophils (%) (Auto) 3.4 0.0-7.0 % Basophils (%) (Auto) 0.5 0.0-2.0 % Neutrophils # (Auto) 3.3 1.6-8.6 10 ^3/uL Lymphocytes # (Auto) 2.3 0.4-5.4 10 ^3/uL Monocytes # (Auto) 0.6 0-1.3 10 ^3/uL Eosinophils # (Auto) 0.2 0-0.8 10 ^3/uL Basophils # (Auto) 0 0-0.2 10 ^3/uL Nucleated Red Blood Cells 0.0 % Sodium Level 142 136-145 mmol/L Potassium Level 4.4 3.5-5.1 mmol/L Chloride Level 107 98-107 mmol/L Carbon Dioxide Level 28 20-31 mmol/L Anion Gap 7 5-15 Blood Urea Nitrogen 22 9-23 mg/dL Creatinine 1.14 H 0.550-1.02 mg/dL Glomerular Filtration Rate Calc 53 >90 mL/min BUN/Creatinine Ratio 19.3 10.0-20.0 Serum Glucose 77 74-106 mg/dL Calcium Level 8.7 8.7-10.4 mg/dL Magnesium Level 2.5 1.6-2.6 mg/dL Troponin I High Sensitivity 4 </=34 ng/L B-Type Natriuretic Peptide 8.00 0-100 pg/mL Lipase 62 H 12-53 U/L Current Medications Medications (Trade) Dose Ordered Sig/Maryanne Route Start Time Stop Time Status Last Admin Sodium Chloride 1,000 ml @ 1,000 mls/hr Q1H ONCE IV 12/01/24 00:00 12/01/24 00:59 DC 12/01/24 00:02 Time of 1ST Reevaluation: 19:12 Reevaluation 1ST: Unchanged Patient Education/Counseling: Need For Follow Up Family Education/Counseling: No Family Present SEPSIS Sepsis Screen Physician Orders Chest Xray 1 View (11/30/24 19:07) Rewinder Operator (11/30/24 ) Covid19 Antigen Nancy (11/30/24 ) Rapid Influenza A&B (11/30/24 19:07) Orthostatic Vital Signs (11/30/24 ) Vital Signs Date Time Temp Pulse Resp B/P (MAP) Pulse Ox O2 Delivery O2 Flow Rate FiO2 12/01/24 01:12 63 12 98/68 (78) 96 12/01/24 00:00 64 11/30/24 23:44 71 98/67 11/30/24 23:43 70 102/64 11/30/24 23:39 67 90/63 11/30/24 23:00 69 15 96/71 (79) 96 11/30/24 21:00 69 13 98/64 (75) 96 11/30/24 20:00 77 11/30/24 19:44 73 19 95 Room Air* 0 21 11/30/24 19:00 98.3 73 19 99/56 (70) 95 98.3 11/30/24 18:38 98.4 71 20 97/67 100 98.4 11/30/24 18:37 72 Laboratory Tests Test 11/30/24 19:14 White Blood Count 6.4 10^3/uL (4.4-10.8) Departure 1 Departure Time of Disposition: 23:04 Impression: Primary Impression: Vomiting and diarrhea Additional Impression: Dizziness Disposition: HOME / SELF CARE / HOMELESS Condition: Stable Comments MDM: 64-year-old female who presented with dizziness, nausea, vomiting and diarrhea She felt improved with the treatment in the emergency department. Patient was offered admission for further treatment, observation and evaluation. Discussed risks, benefits and return precautions with the patient. The patient is declined admission and is requesting to be discharged home to follow up with the primary care provider as an outpatient. Patient well-appearing, nontoxic. Advised prompt follow-up with PCP, return to the ED with any new, worsening or concerning symptoms. Critical Care Note Critical Care Time?: No Stability Stability form required: No Heart Score Heart Score: Heart Score Response (Comments) Value History N/A 0 EKG N/A 0 Age N/A 0 Risk Factors N/A 0 Troponin N/A 0 Total 0 I personally scribed for GILBERT SANTOS MD ([email or web address]) on 11/30/24 at 18:50. Electronically submitted by Chencho Herrera ([employer]). I personally scribed for GILBERT SANTOS MD ([email or web address]) on 11/30/24 at 19:08. Electronically submitted by Chencho Herrera ([email or web address]). I personally scribed for GILBERT SANTOS MD ([email or web address]) on 11/30/24 at 19:13. Electronically submitted by Chencho Herrera ([email or web address]). GILBERT ASNTOS MD Nov 30, 2024 18:43
--- NOTE | 2024-11-30 18:44 | ECG ---
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
[2024-11-30 19:00] VITALS: TEMP 98.3
[2024-11-30 19:24] LABS: Hematocrit 39.4 % (36.0-46.0); Hemoglobin 12.8 g/dL (12.2-16.2); Mean Corpuscular Hemoglobin 28.0 pg (28.0-32.0); Mean Corpuscular Volume 86.5 fL (80.0-100.0); Nucleated Red Blood Cells % 0.0 %
[2024-11-30 19:30] LABS: Anion Gap 7 (5-15); Carbon Dioxide 28 mmol/L (20-31); Potassium 4.4 mmol/L (3.5-5.1); Sodium 142 mmol/L (136-145)
[2024-11-30 19:35] LABS: Glucose 77 mg/dL (74-106)
[2024-11-30 19:36] LABS: BUN/Creatinine Ratio 19.3 (10.0-20.0); Blood Urea Nitrogen 22 mg/dL (9-23); Calcium 8.7 mg/dL (8.7-10.4); Chloride 107 mmol/L (98-107); Lipase 62 U/L (12-53); Magnesium 2.5 mg/dL (1.6-2.6)
--- NOTE | 2024-11-30 19:42 | DVH ---
CHEST RADIOGRAPH Indication: cp Technique: Single frontal view of the chest was obtained Comparison: XY CHEST XRAY 1 VIEW on DOS: 01/20/23, XY CHEST PORTABLE on DOS: 06/06/22, XY CHEST XRAY 1 VIEW on DOS: 04/17/22 FINDINGS: Lines and Tubes: None Lungs: No focal consolidation. Pleura: No effusion. No pneumothorax. Cardiomediastinal contours: Unremarkable Bones: No acute osseous abnormality. IMPRESSION: No acute cardiopulmonary disease.
[2024-11-30 19:44] VITALS: PULSE 73; RESP 19; O2SAT 95
[2024-11-30] MEDS: SODIUM CHLORIDE 0.9% 1,000 ML IV ONE (19:59)
[2024-11-30] MEDS: ONDANSETRON HCL 4 MG/2 ML VIAL IV ONE (20:00)
[2024-11-30 20:44] LABS: Urine Protein, UAD Negative (Negative)
[2024-12-01] MEDS: SODIUM CHLORIDE 0.9% 1,000 ML IV ONE (00:02)
[2024-12-01 01:12] VITALS: BP 98/68; PULSE 63; RESP 12; O2SAT 96
== END 2024-12-01 01:28 | disposition home or self-care (01) ==
LOC: ER 18:31 → EDBD 18:31 → EDUNIT# 18:31 → ER 12-01 01:28
DX: R11.10 Vomiting, unspecified (principal); R19.7 Diarrhea, unspecified; R42 Dizziness and giddiness; I10 Essential (primary) hypertension; E11.9 Type 2 diabetes mellitus without complications; F32.A Depression, unspecified; Z79.82 Long term (current) use of aspirin; Z79.899 Other long term (current) drug therapy; Z86.73 Personal history of transient ischemic attack (TIA), and cerebral infarction without residual deficits; Z90.49 Acquired absence of other specified parts of digestive tract; Z90.89 Acquired absence of other organs
CPT/HCPCS: 36415; 71045; 80048; 81001; 83690; 83735; 83880; 84484; 85025; 93005; 96361; 96375; 99285; J2405; J7030; 96365; 96374

== ENCOUNTER 2024-12-07 11:26 | Observation (INO) | payer MEDICARE, MEDICAID ==
[~2024-12-07] VITALS: Ht 152.4 cm; Wt 100.0 kg
[2024-12-07] MEDS: NOREPINEPHRINE 8 MG/250ML KIT 250 ML IV SCH (11:55)
[2024-12-07] MEDS: SODIUM CHLORIDE 0.9% 1,000 ML IV ONE ×2 (11:58→15:40)
[2024-12-07] MEDS: NALOXONE HCL 1MG/ML 2ML SYRINGE IV ONE ×2 (12:23→15:40)
--- NOTE | 2024-12-07 12:23 | ECG ---
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
--- NOTE | 2024-12-07 12:24 | DVH ---
CHEST RADIOGRAPH Indication: Weakness Technique: Single frontal view of the chest was obtained Comparison: XY CHEST XRAY 1 VIEW on DOS: 11/30/24. FINDINGS: Lines and Tubes: None Lungs: Interval development of bilateral increased interstitial prominence. No focal consolidation. Pleura: No effusion. No pneumothorax. Cardiomediastinal contours: Unremarkable Bones: No acute osseous abnormality. IMPRESSION: 1. Interval development of bilateral increased interstitial prominence which may reflect pulmonary va scular congestion or atypical infection.
[2024-12-07] MEDS: NOREPINEPHRINE 8 MG/250ML KIT 250 ML IV ONE (12:42)
[2024-12-07 12:45] LABS: Hematocrit 38.1 % (36.0-46.0); Hemoglobin 12.4 g/dL (12.2-16.2); Mean Corpuscular Hemoglobin 28.2 pg (28.0-32.0); Mean Corpuscular Volume 86.9 fL (80.0-100.0); Nucleated Red Blood Cells % 0.0 %
[2024-12-07 12:57] LABS: Potassium 4.4 mmol/L (3.5-5.1); Sodium 143 mmol/L (136-145)
[2024-12-07 12:58] LABS: Anion Gap 11 (5-15); Carbon Dioxide 24 mmol/L (20-31)
[2024-12-07 13:00] LABS: Calcium 8.0 mg/dL (8.7-10.4); Chloride 108 mmol/L (98-107)
[2024-12-07 13:03] LABS: BUN/Creatinine Ratio 14.7 (10.0-20.0); Glucose 85 mg/dL (74-106)
[2024-12-07 13:05] LABS: Blood Urea Nitrogen 36 mg/dL (9-23)
[2024-12-07 14:11] VITALS: PULSE 93; RESP 13; O2SAT 98
[2024-12-07 15:41] LABS: Urine Protein, UAD Negative (Negative)
[2024-12-07 16:21] VITALS: PULSE 93; RESP 16; O2SAT 98
[2024-12-07] MEDS ORDERED: DOCUSATE SOD 100 MG CAP PO PRN (19:15)
[2024-12-07] MEDS ORDERED: ONDANSETRON HCL 4 MG/2 ML VIAL IV PRN (19:15)
[2024-12-07] MEDS ORDERED: MORPHINE SULFATE INJ 2 MG/ml SYRG IV PRN (19:15)
[2024-12-07] MEDS ORDERED: NITROGLYCERIN 0.4 MG SL TAB SL PRN (19:15)
[2024-12-07] MEDS ORDERED: ACETAMINOPHEN 325 MG TAB PO PRN (19:15)
[2024-12-07] MEDS: SODIUM CHLORIDE 0.9% 1,000 ML IV SCH (19:26)
[2024-12-07 19:30] VITALS: O2SAT 98
[2024-12-07] MEDS ORDERED: MECLIZINE HCL 25 MG TAB PO PRN (19:45)
--- NOTE | 2024-12-07 20:16 | DVH ---
INDICATION: Kidney injury TECHNIQUE: Multiple real-time sonographic images of the kidneys and bladder were obtained. COMPARISON: None FINDINGS: The right kidney measures 10.6 cm in length, which is normal in size. There is normal echog enicity of the right kidney. No hydronephrosis. The left kidney measures 9.6 cm in length, which is normal in size. There is normal echogenicity of t he left kidney. No hydronephrosis. No intraluminal mass is seen in the bladder. At the time of examination, the estimated bladder volume is 507 cc. IMPRESSION: Normal sonographic appearance of the kidneys. No hydronephrosis.
[2024-12-08] VITALS (7 sets, daily range): BP systolic 117–124; BP diastolic 75–84; PULSE 66–71; RESP 11–18; TEMP 36.4; O2SAT 96–98
[2024-12-08 05:03] LABS: Hematocrit 37.8 % (36.0-46.0); Hemoglobin 12.3 g/dL (12.2-16.2); Mean Corpuscular Hemoglobin 28.3 pg (28.0-32.0); Mean Corpuscular Volume 87.3 fL (80.0-100.0); Nucleated Red Blood Cells % 0.1 %
[2024-12-08 05:31] LABS: Albumin 3.5 g/dL (3.2-4.8); Anion Gap 11 (5-15); BUN/Creatinine Ratio 28.7 (10.0-20.0); Carbon Dioxide 22 mmol/L (20-31); Potassium 4.4 mmol/L (3.5-5.1); Sodium 143 mmol/L (136-145)
[2024-12-08 05:37] LABS: Alanine Aminotransferase 51 U/L (7-40); Alkaline Phosphatase 118 U/L (46-116); Bilirubin, Total 1.4 mg/dL (0.2-1.0); Blood Urea Nitrogen 25 mg/dL (9-23); Calcium 8.4 mg/dL (8.7-10.4); Chloride 110 mmol/L (98-107); Glucose 74 mg/dL (74-106); Total Protein 5.5 g/dL (5.7-8.2)
--- NOTE | 2024-12-08 11:09 | ED.PDOC ---
History of Present Illness HPI Comments This is a 64 year old female MONISHA presenting to the ED with chief complaint of generalized weakness. EMS reports that the patient has been feeling generally weak with associated dizziness for the past week. EMS relays patient had a fall today prior to calling 911. EMS states patient was noted to have a BP at 60/33 on scene and dropped down to 40 systolic, but is now 140 systolic. EMS notes patient was 88% on RA and is now on 6L with improvement in O2 saturation. Patient denies any chest pain, SOB, headache, N/V, abdominal pain, or syncope. Time Seen by MD: 11:39 Primary Care Provider: shorty Reviewed Notes: Nurses Notes, President And Chief Commercial Officer Notes, Medications, Allergies Allergies: Coded Allergies: NO KNOWN ALLERGIES (Unverified , 10/19/19) Home Meds Active Scripts Aspirin (Aspirin Low Dose) 81 Mg Tab, 81 MG PO DAILY for 100 Days, #100 TAB Prov:MARIA DEL ROSARIO CALLOWAY MD 01/21/23 Ondansetron (Zofran) 4 Mg Tab, 4 MG PO Q8HPRN PRN, #14 MG Prov:JACLYN BRADY MD 06/06/22 Meclizine HCl (Meclizine) 25 Mg Chw, 25 MG PO Q8HPRN PRN, #14 CHW Prov:JACLYN BRADY MD 06/06/22 Reported Medications Buspirone HCl (Buspirone Hydrochloride) 15 Mg Tab, 1 TAB PO TID 04/18/22 Lisinopril (Lisinopril) 2.5 Mg Tab, 1 TAB PO DAILY 04/18/22 Olanzapine (OLANZAPINE) 15 Mg Tab, 1 TAB PO 04/18/22 Pregabalin (Pregabalin) 75 Mg Cap, 1 CAP PO BID 04/18/22 Trazodone Hcl (Trazodone Hcl) 100 Mg Tab, 1 TAB PO 04/18/22 Sertraline Hcl (Sertraline Hcl) 100 Mg Tab, 1 TAB PO DAILY 04/18/22 Information Source: Patient, Emergency Med Personnel Mode of Arrival: EMS Severity: Moderate Timing: Weeks Duration: Since onset Prehospital treatment: 12 Lead EKG, Oxygen Past Medical History PAST MEDICAL HISTORY: CVA, Depression, DM, HTN, TIA Surgical History: Cholecystectomy, , Tonsillectomy 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 Family History Family History: Reviewed,noncontributory to illness Social History Smoker: Non-Smoker Alcohol: Denies ETOH Use Drugs: Denies Drug Use Lives In: Home Constitutional: reports: fatigue, weakness; denies: chills, diaphoresis, fever, malaise, sweats, others EENTM: denies: blurred vision, double vision, ear bleeding, ear discharge, ear drainage, ear pain, ear ringing, eye pain, eye redness, hearing loss, mouth pain, mouth swelling, nasal discharge, nose bleeding, nose congestion, nose pain, photophobia, tearing, throat pain, throat swelling, voice changes, others Respiratory: denies: cough, hemoptysis, orthopnea, SOB at rest, shortness of breath, SOB with excertion, stridor, wheezing, others Cardiovascular: denies: chest pain, dizzy spells, diaphoresis, Dyspnea on exertion, edema, irregular heart beat, left arm pain, lightheadedness, palpitations, PND, syncope, others Gastrointestinal: denies: abdomen distended, abdominal pain, blood streaked bowels, constipated, diarrhea, dysphagia, difficulty swallowing, hematemesis, melena, nausea, poor appetite, poor fluid intake, rectal bleeding, rectal pain, vomiting, others Genitourinary: denies: abnormal vagina bleeding, burning, dyspareunia, dysuria, flank pain, frequency, hematuria, incontinence, pain, , vagina di scharge, urgency, others Neurological: reports: dizziness; denies: fainting, headache, left sided numbness, left sided weakness, numbness, paresthesia, pre-existing deficit, right sided numbness, right sided weakness, seizure, speech problems, tingling, tremors, weakness, others Musculoskeletal: denies: back pain, gout, joint pain, joint swelling, muscle pain, muscle stiffness, neck pain, others Integumetry: denies: bruises, change in color, change in hair/nails, dryness, laceration, lesions, lumps, rash, wounds, others Allergic/Immunocompromised: denies: Difficulty Healing, Frequent Infections, Hives, Itching, others Hematologic/Lymphatic: denies: anemia, blood clots, easy bleeding, easy bruising, swollen glands, others Endocrine: denies: excessive hunger, excessive sweating, excessive thirst, excessive urination, flushing, intolerance to cold, intolerance to heat, unexplained weight gain, unexplained weight loss, others Psychiatric: denies: anxiety, bipolar disorder, depression, hopeless, panic disorder, schizophrenia, sleepless, suicidal, others All Other Systems: Reviewed and Negative Physical Exam General Appearance: No Apparent Distress, Other (Lethargic, dehydrated) HEENT: Normal ENT Inspection, Pharynx Normal, TMs Normal Neck: Full Range of Motion, Non-Tender, Normal, Normal Inspection Respiratory: Chest Non-Tender, Lungs Clear, No Accessory Muscle Use, No Respiratory Distress, Normal Breath Sounds Cardiovascular: No Edema, No JVD, No Murmur, No Gallop, Normal Peripheral Pulses, Regular Rate/Rhythm Breast Exam: Deferred Gastrointestinal: No Organomegaly, Non Tender, No Pulsatile Mass, Normal Bowel Sounds, Soft Genitalia: Deferred Pelvic: Deferred Rectal: Deferred Extremities: No calf tenderness, Normal capillary refill, Normal inspection, Normal range of motion, Non-tender, No pedal edema Musculoskeletal : Apperance: Normal 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, director of operations home health II-XII nml as Tested, No Motor Deficits, Normal Affect, Normal Mood, No Sensory Deficits Cerebellar Function: Normal Reflexes: Normal Skin: Dry, Normal Color, Warm Lymphatic: No Adenopathy Was a procedure done? Was a procedure done?: No Differential Dx Considerations may include: ACS, CVA, hypovolemic shock, viral syndrome, UTI, sepsis, cardiogenic shock, toxic encephalopathy in the X-Ray, Labs, Meds, VS Vital Signs Date Time Temp Pulse Resp B/P (MAP) Pulse Ox O2 Delivery O2 Flow Rate FiO2 12/07/24 16:21 93 16 98 Oxymizer 2 N/A 12/07/24 16:09 79 12 117/69 (85) 97 12/07/24 15:28 98.7 88 20 82/57 (65) 94 98.7 12/07/24 14:11 93 13 98 Oxymizer 4 N/A 12/07/24 13:40 97.4 93 13 107/65 (79) 96 97.4 12/07/24 13:00 96 14 91/45 (60) 99 12/07/24 12:45 95 10 103/60 (74) 99 12/07/24 12:37 143/115 12/07/24 12:30 91 20 153/94 (113) 99 12/07/24 12:30 153/94 12/07/24 12:20 151/89 12/07/24 12:15 67 12 77/49 (58) 100 12/07/24 12:00 65 8 151/86 (107) 99 12/07/24 12:00 151/86 12/07/24 11:55 78/48 12/07/24 11:36 98.6 77 14 141/88 97 98.6 12/07/24 11:34 75 Lab Test 12/07/24 16:07 12/07/24 15:22 12/07/24 15:08 12/07/24 13:53 Range/Units POC Glucose 88 70-106 mg/dl Urine Color Light-yellow Yellow Urine Clarity Turbid H Clear Urine pH 5.0 5.0-9.0 Urine Specific Elbert 1.006 1.001-1.035 Urine Protein Negative Negative Urine Ketones Negative Negative Urine Blood Trace H Negative /uL Urine Nitrite Negative Negative Urine Bilirubin Negative Negative Urine Urobilinogen Normal Negative mg/dL Urine Leukocyte Esterase 1+ Negative /uL Urine RBC 1 0 - 4 /hpf Urine Microscopic WBC 4 0-5 /HPF Urine Squamous Epithelial Cells Few <5 /hpf Urine Bacteria Few H None Seen /hpf Urine Hyaline Casts Few 0 - 2 /lpf Urine Glucose Normal Normal mg/dL Troponin I High Sensitivity 7 4 </=34 ng/L Test 12/07/24 12:06 Range/Units White Blood Count 7.6 4.4-10.8 10^3/uL Red Blood Count 4.38 4.0-5.20 10^6/uL Hemoglobin 12.4 12.2-16.2 g/dL Hematocrit 38.1 36.0-46.0 % Mean Corpuscular Volume 86.9 80.0-100.0 fL Mean Corpuscular Hemoglobin 28.2 28.0-32.0 pg Mean Corpuscular Hemoglobin Concent 32.5 32.0-36.0 g/dL Red Cell Distribution Width 16.8 H 11.8-14.3 % Platelet Count 193 140-450 10^3/uL Mean Platelet Volume 8.5 6.9-10.8 fL Neutrophils (%) (Auto) 71.6 37.0-80.0 % Lymphocytes (%) (Auto) 19.1 10.0-50.0 % Monocytes (%) (Auto) 8.3 0.0-12.0 % Eosinophils (%) (Auto) 0.8 0.0-7.0 % Basophils (%) (Auto) 0.2 0.0-2.0 % Neutrophils # (Auto) 5.4 1.6-8.6 10 ^3/uL Lymphocytes # (Auto) 1.5 0.4-5.4 10 ^3/uL Monocytes # (Auto) 0.6 0-1.3 10 ^3/uL Eosinophils # (Auto) 0.1 0-0.8 10 ^3/uL Basophils # (Auto) 0 0-0.2 10 ^3/uL Nucleated Red Blood Cells 0.0 % Sodium Level 143 136-145 mmol/L Potassium Level 4.4 3.5-5.1 mmol/L Chloride Level 108 H 98-107 mmol/L Carbon Dioxide Level 24 20-31 mmol/L Anion Gap 11 5-15 Blood Urea Nitrogen 36 H 9-23 mg/dL Creatinine 2.45 #H 0.550-1.02 mg/dL Glomerular Filtration Rate Calc 21 >90 mL/min BUN/Creatinine Ratio 14.7 10.0-20.0 Serum Glucose 85 74-106 mg/dL Lactic Acid Level 1.4 0.4-2.0 mmol/L Calcium Level 8.0 L 8.7-10.4 mg/dL Troponin I High Sensitivity 4 </=34 ng/L B-Type Natriuretic Peptide 8.82 0-100 pg/mL Current Medications Medications (Trade) Dose Ordered Sig/Maryanne Route Start Time Stop Time Status Last Admin Sodium Chloride 1,000 ml @ 1,000 mls/hr Q1H ONCE IV 12/07/24 11:30 12/07/24 12:29 DC 12/07/24 11:58 Norepinephrine Bitartrate 250 ml @ 3.75 mls/hr Q24H IV 12/07/24 12:00 12/07/24 11:55 Naloxone HCl (Narcan) 2 mg ONCE ONCE IV 12/07/24 12:30 12/07/24 12:31 DC 12/07/24 12:23 Naloxone HCl (Narcan) 2 mg ONCE ONCE IV 12/07/24 15:45 12/07/24 15:46 DC 12/07/24 15:40 Sodium Chloride 1,000 ml @ 1,000 mls/hr Q1H ONCE IV 12/07/24 15:40 12/07/24 16:39 DC 12/07/24 15:[address] [address] Ph: [phone] DIAGNOSTIC IMAGING Diagnostic Imaging Report : [id number] Signed PATIENT: JOSE F RAGLAND ACCT: [id number] UNIT: [id number] : 1960 LOC: ER ROOM / BED: / AGE / SEX: 64 / F ADM STATUS: REG ER SERVICE 1143 ORDERING PHYSICIAN: CHELSEY PENA MD PROCEDURE(s): CXRP - CHEST PORTABLE REASON: weakness ORDER NUMBER(s): [id number], ACCESSION NUMBER(s): [id number] CHEST RADIOGRAPH Indication: Weakness Technique: Single frontal view of the chest was obtained Comparison: XY CHEST XRAY 1 VIEW on DOS: 11/30/24. FINDINGS: Lines and Tubes: None Lungs: Interval development of bilateral increased interstitial prominence. No focal consolidation. Pleura: No effusion. No pneumothorax. Cardiomediastinal contours: Unremarkable Bones: No acute osseous abnormality. IMPRESSION: 1. Interval development of bilateral increased interstitial prominence which may reflect pulmonary vascular congestion or atypical infection. ATED BY: VILMA MARTINEZ MD DICTATED DATE/TIME: 12/07/24 122 SIGNED BY: VILMA MARTINEZ MD SIGNED DATE/TIME: 12/07/241220 CC: Images Reviewed?: Images reviewed and evaluated by me Time of 1ST Reevaluation: 12:36 Reevaluation 1ST: Unchanged Patient Education/Counseling: Diagnosis, Treatment Family Education/Counseling: No Family Present SEPSIS Sepsis Screen Physician Orders Blood Culture (12/07/24 11:29) Chest Portable (12/07/24 11:43) Electrocardigram (12/07/24 12:29) Electrocardigram (12/07/24 14:29) Norepinephrine 8 Mg/250ml Kit (Levophed) (12/07/24 12:00) Communication Order (12/07/24 11:58) Vital Signs Date Time Temp Pulse Resp B/P (MAP) Pulse Ox O2 Delivery O2 Flow Rate FiO2 12/07/24 16:21 93 16 98 Oxymizer 2 N/A 12/07/24 16:09 79 12 117/69 (85) 97 12/07/24 15:28 98.7 88 20 82/57 (65) 94 98.7 12/07/24 14:11 93 13 98 Oxymizer 4 N/A 12/07/24 13:40 97.4 93 13 107/65 (79) 96 97.4 12/07/24 13:00 96 14 91/45 (60) 99 12/07/24 12:45 95 10 103/60 (74) 99 12/07/24 12:37 143/115 12/07/24 12:30 91 20 153/94 (113) 99 12/07/24 12:30 153/94 12/07/24 12:20 151/89 12/07/24 12:15 67 12 77/49 (58) 100 12/07/24 12:00 65 8 151/86 (107) 99 12/07/24 12:00 151/86 12/07/24 11:55 78/48 12/07/24 11:36 98.6 77 14 141/88 97 98.6 12/07/24 11:34 75 Laboratory Tests Test 12/07/24 12:06 Lactic Acid Level 1.4 mmol/L (0.4-2.0) White Blood Count 7.6 10^3/uL (4.4-10.8) Medications Medications Dose Ordered Sig/Maryanne Route Start Time Stop Time Status Last Admin Dose Admin Naloxone HCl 2 mg ONCE ONCE IV 12/07/24 12:30 12/07/24 12:31 DC 12/07/24 12:23 Naloxone HCl 2 mg ONCE ONCE IV 12/07/24 15:45 12/07/24 15:46 DC 12/07/24 15:40 Norepinephrine Bitartrate 250 ml @ 3.75 mls/hr Q24H IV 12/07/24 12:00 12/07/24 11:55 Sodium Chloride 1,000 ml @ 1,000 mls/hr Q1H ONCE IV 12/07/24 11:30 12/07/24 12:29 DC 12/07/24 11:58 Sodium Chloride 1,000 ml @ 1,000 mls/hr Q1H ONCE IV 12/07/24 15:40 12/07/24 16:39 DC 12/07/24 15:40 Departure 1 Departure Time of Disposition: 18:10 (Patient is hypotensive follow up upon arrival concerning for hypovolemic shock. Patient also with an SILVIA. We will admit patient for further workup) Impression: Primary Impression: Hypovolemic shock Additional Impressions: SILVIA (acute kidney injury) Acute metabolic encephalopathy Polysubstance abuse Disposition: ADMITTED INPATIENT Admit to: [facility] Condition: Guarded Critical Care Note Critical Care Time?: Yes (35 min-critical care time only) Critical care comment: Hypovolemic shock Authorized and Performed by: Chelsey Pena MD Total critical care time: Approximately 126 minutes Due to a high probability of clinically significant, life threatening deterioration, the patient required my highest level of preparedness to intervene emergently and I personally spent this critical care time directly and personally managing the patient. This critical care time included obtaining a history; examining the patient; pulse oximetry; ordering and review of studies; arranging urgent treatment with development of a management plan; evaluation of patient's response to treatment; frequent reassessment; and, discussions with other providers. This critical care time was performed to assess and manage the high probability of imminent, life-threatening deterioration that could result in multi-organ failure. It was exclusive of separately billable procedures and treating other patients and teaching time. Please see my other sections and the rest of the note for further information on patient assessment and treatment. Stability Stability form required: No Heart Score Heart Score: Heart Score Response (Comments) Value History Moderate Suspicious 1 EKG Normal 0 Age >65 2 Risk Factors >3 or Hx ASHD 2 Troponin 1-2 x's Normal limit 1 Total 6 I personally scribed for CHELSEY PENA MD ([email or web address]) on 12/07/24 at 11:47. Electronically submitted by Diallo Patel ([email or web address]). I personally scribed for CHELSEY PENA MD ([email or web address]) on 12/07/24 at 15:22. Electronically submitted by Diallo Patel ([email or web address]). CHELSEY PENA MD Dec 07, 2024 11:47
[2024-12-08] MEDS: HYDROcodone-ACET 5/325MG TAB PO PRN (11:17)
--- NOTE | 2024-12-08 11:24 | DVHHP2 ---
Admitting Diagnosis: SILVIA r/t VMN Acute hypoxic respiratory failure r/t polypharmacy with possible medication overdose Hypotension r/t dehydration and possible medication overdose Morbid obesity History of Present Illness Chief Complaint Generalized weakness, dizziness for the past week, fall prior to hospital arrival History of Present Illness Amee Arrieta is a 64-year-old female who presented to the emergency room with complaints of generalized weakness. She has been experiencing dizziness and weakness for the past week. Prior to her arrival at the hospital, she had a fall. She was found to be severely dehydrated and is morbidly obese. Patient had hypotension related to dehydration and possible overdose from medication. Medical History The patient has a history of morbid obesity and chronic back pain. Social History Smoker: Non-Smoker Alcohol: Denies ETOH Use Drugs: Denies Drug Use Lives In: Home Constitutional: reports: fatigue, weakness; denies: chills, diaphoresis, fever, malaise, sweats, others EENTM: denies: blurred vision, double vision, ear bleeding, ear discharge, ear drainage, ear pain, ear ringing, eye pain, eye redness, hearing loss, mouth pain, mouth swelling, nasal discharge, nose bleeding, nose congestion, nose pain, photophobia, tearing, throat pain, throat swelling, voice changes, others Respiratory: denies: cough, hemoptysis, orthopnea, SOB at rest, shortness of breath, SOB with excertion, stridor, wheezing, others Cardiovascular: denies: chest pain, dizzy spells, diaphoresis, Dyspnea on exertion, edema, irregular heart beat, left arm pain, lightheadedness, palpitations, PND, syncope, others Gastrointestinal: denies: abdomen distended, abdominal pain, blood streaked bowels, constipated, diarrhea, dysphagia, difficulty swallowing, hematemesis, melena, nausea, poor appetite, poor fluid intake, rectal bleeding, rectal pain, vomiting, others Genitourinary: denies: abnormal vagina bleeding, burning, dyspareunia, dysuria, flank pain, frequency, hematuria, incontinence, pain, , vagina discharge, urgency, others Neurological: reports: dizziness; denies: fainting, headache, left sided numbness, left sided weakness, numbness, paresthesia, pre-existing deficit, right sided numbness, right sided weakness, seizure, speech problems, tingling, tremors, weakness, others Musculoskeletal: denies: back pain, gout, joint pain, joint swelling, muscle pain, muscle stiffness, neck pain, others Integumetry: denies: bruises, change in color, change in hair/nails, dryness, laceration, lesions, lumps, rash, wounds, others Allergic/Immunocompromised: denies: Difficulty Healing, Frequent Infections, Hives, Itching, others Hematologic/Lymphatic: denies: anemia, blood clots, easy bleeding, easy bruising, swollen glands, others Endocrine: denies: excessive hunger, excessive sweating, excessive thirst, excessive urination, flushing, intolerance to cold, intolerance to heat, unexplained weight gain, unexplained weight loss, others Psychiatric: denies: anxiety, bipolar disorder, depression, hopeless, panic disorder, schizophrenia, sleepless, suicidal, others All Other Systems: Reviewed and Negative Patient Family History: Diabetes mellitus G8 MOTHER Hypertension G8 MOTHER Allergies: Coded Allergies: NO KNOWN ALLERGIES (Unverified , 10/19/19) Home Meds Active Scripts Aspirin (Aspirin Low Dose) 81 Mg Tab, 81 MG PO DAILY for 100 Days, #100 TAB Prov:MARIA DEL ROSARIO CALLOWAY MD 01/21/23 Ondansetron (Zofran) 4 Mg Tab, 4 MG PO Q8HPRN PRN, #14 MG Prov:JACLYN BRADY MD 06/06/22 Meclizine HCl (Meclizine) 25 Mg Chw, 25 MG PO Q8HPRN PRN, #14 CHW Prov:JACLYN BRADY MD 06/06/22 Reported Medications Buspirone HCl (Buspirone Hydrochloride) 15 Mg Tab, 1 TAB PO TID 04/18/22 Lisinopril (Lisinopril) 2.5 Mg Tab, 1 TAB PO DAILY 04/18/22 Olanzapine (OLANZAPINE) 15 Mg Tab, 1 TAB PO 04/18/22 Pregabalin (Pregabalin) 75 Mg Cap, 1 CAP PO BID 04/18/22 Trazodone Hcl (Trazodone Hcl) 100 Mg Tab, 1 TAB PO 04/18/22 Sertraline Hcl (Sertraline Hcl) 100 Mg Tab, 1 TAB PO DAILY 04/18/22 Current Medications Vital Signs Vital Signs Date Time Temp Pulse Resp B/P (MAP) Pulse Ox O2 Delivery O2 Flow Rate FiO2 12/08/24 13:48 36.4 12/08/24 12:10 67 16 124/84 (97) 96 12/08/24 10:13 Room Air* 0 21 Physical Exam General Appearance: No Apparent Distress, Other (Lethargic, dehydrated) HEENT: Normal ENT Inspection, Pharynx Normal, TMs Normal Neck: Full Range of Motion, Non-Tender, Normal, Normal Inspection Respiratory: Chest Non-Tender, Lungs Clear, No Accessory Muscle Use, No Respiratory Distress, Normal Breath Sounds Cardiovascular: No Edema, No JVD, No Murmur, No Gallop, Normal Peripheral Pulses, Regular Rate/Rhythm Breast Exam: Deferred Gastrointestinal: No Organomegaly, Non Tender, No Pulsatile Mass, Normal Bowel Sounds, Soft Genitalia: Deferred Pelvic: Deferred Rectal: Deferred Extremities: No calf tenderness, Normal capillary refill, Normal inspection, Normal range of motion, Non-tender, No pedal edema Musculoskeletal : Apperance: Normal 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, 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, No Motor Deficits, Normal Affect, Normal Mood, No Sensory Deficits Cerebellar Function: Normal Reflexes: Normal Skin: Dry, Normal Color, Warm Lymphatic: No Adenopathy SEPSIS Sepsis Screen Date sepsis recognized/suspect: Dec 07, 2024 Time Sepsis recognized/suspect: 1200 Recent Procedure: No On Antibiotic Therapy: No Respiratory Rate >20: No Heart Rate >90: No Temp<36 C (96.8 F) or >38.3 C: No SBP <90 or MAP <65 mmHG: No New Acute Mental Status Change: No Is the patient on CPAP, BIPAP,: No Physician Orders Blood Culture (12/07/24 11:29) Chest Portable (12/07/24 11:43) Electrocardigram (12/07/24 12:29) Electrocardigram (12/07/24 14:29) Communication Order (12/07/24 11:58) Admit (12/07/24 19:02) Code Status (12/07/24 19:02) Oxygen Per Hour (12/07/24 19:02) Pt Request For Service (12/07/24 19:02) *Consult Dr. Demarco (12/07/24 19:02) Kidney (12/07/24 19:06) Admit (12/07/24 19:13) Oxygen By Nasal Cannula (12/07/24 19:13) Echo 2d Mode Cardiac Dop (12/08/24 19:02) Discharge (12/08/24 12:39) Vital Signs Date Time Temp Pulse Resp B/P (MAP) Pulse Ox O2 Delivery O2 Flow Rate FiO2 12/08/24 13:48 36.4 12/08/24 12:10 98.0 67 16 124/84 (97) 96 98.0 12/08/24 10:13 71 16 97 Room Air* 0 21 12/08/24 09:40 97.6 71 18 117/75 (89) 98 97.6 12/08/24 09:04 97.6 71 18 117/75 (89) 98 97.6 12/08/24 09:04 97.6 71 18 98 97.6 12/08/24 08:00 71 12/08/24 07:34 66 11 96 Room Air* 0 21 12/08/24 07:34 97.7 66 11 117/59 (78) 96 97.7 Laboratory Tests Test 12/07/24 12:06 12/08/24 04:26 Lactic Acid Level 1.4 mmol/L (0.4-2.0) White Blood Count 7.6 10^3/uL (4.4-10.8) 5.7 10^3/uL (4.4-10.8) Results Labs Test 12/08/24 04:26 12/07/24 16:07 12/07/24 15:22 12/07/24 15:08 Range/Units White Blood Count 5.7 4.4-10.8 10^3/uL Red Blood Count 4.33 4.0-5.20 10^6/uL Hemoglobin 12.3 12.2-16.2 g/dL Hematocrit 37.8 36.0-46.0 % Mean Corpuscular Volume 87.3 80.0-100.0 fL Mean Corpuscular Hemoglobin 28.3 28.0-32.0 pg Mean Corpuscular Hemoglobin Concent 32.4 32.0-36.0 g/dL Red Cell Distribution Width 16.6 H 11.8-14.3 % Platelet Count 174 140-450 10^3/uL Mean Platelet Volume 8.5 6.9-10.8 fL Neutrophils (%) (Auto) 63.5 37.0-80.0 % Lymphocytes (%) (Auto) 25.7 10.0-50.0 % Monocytes (%) (Auto) 8.0 0.0-12.0 % Eosinophils (%) (Auto) 2.3 0.0-7.0 % Basophils (%) (Auto) 0.5 0.0-2.0 % Neutrophils # (Auto) 3.6 1.6-8.6 10 ^3/uL Lymphocytes # (Auto) 1.5 0.4-5.4 10 ^3/uL Monocytes # (Auto) 0.5 0-1.3 10 ^3/uL Eosinophils # (Auto) 0.1 0-0.8 10 ^3/uL Basophils # (Auto) 0 0-0.2 10 ^3/uL Nucleated Red Blood Cells 0.1 % Sodium Level 143 136-145 mmol/L Potassium Level 4.4 3.5-5.1 mmol/L Chloride Level 110 H 98-107 mmol/L Carbon Dioxide Level 22 20-31 mmol/L Anion Gap 11 5-15 Blood Urea Nitrogen 25 #H 9-23 mg/dL Creatinine 0.87 # 0.550-1.02 mg/dL Glomerular Filtration Rate Calc 73 >90 mL/min BUN/Creatinine Ratio 28.7 H 10.0-20.0 Serum Glucose 74 74-106 mg/dL Calcium Level 8.4 L 8.7-10.4 mg/dL Total Bilirubin 1.4 H 0.2-1.0 mg/dL Aspartate Amino Transferase (AST) 66 H 13-40 U/L Alanine Aminotransferase (ALT) 51 H 7-40 U/L Alkaline Phosphatase 118 H 46-116 U/L Total Protein 5.5 L 5.7-8.2 g/dL Albumin 3.5 3.2-4.8 g/dL POC Glucose 88 70-106 mg/dl Urine Color Light-yellow Yellow Urine Clarity Turbid H Clear Urine pH 5.0 5.0-9.0 Urine Specific [place] 1.006 1.001-1.035 Urine Protein Negative Negative Urine Ketones Negative Negative Urine Blood Trace H Negative /uL Urine Nitrite Negative Negative Urine Bilirubin Negative Negative Urine Urobilinogen Normal Negative mg/dL Urine Leukocyte Esterase 1+ Negative /uL Urine RBC 1 0 - 4 /hpf Urine Microscopic WBC 4 0-5 /HPF Urine Squamous Epithelial Cells Few <5 /hpf Urine Bacteria Few H None Seen /hpf Urine Hyaline Casts Few 0 - 2 /lpf Urine Glucose Normal Normal mg/dL Troponin I High Sensitivity 7 </=34 ng/L Test 12/07/24 12:06 Range/Units Lactic Acid Level 1.4 0.4-2.0 mmol/L B-Type Natriuretic Peptide 8.82 0-100 pg/mL Microbiology Date/Time Source Procedure Growth Status 12/07/24 12:06 Blood Blood Culture - Preliminary NO GROWTH AFTER 72 HOURS OF INCUBATION. Resulted Plan Amee Arrieta is a 64-year-old morbidly obese female who presented to the emergency room with generalized weakness and dizziness for the past week, with a recent fall. Severe dehydration with hypotension Assessment: Patient presented with severe dehydration manifesting as hypotension requiring ICU-level care. There was concern she may have over-medicated herself and narcan was given by EMS. The dehydration was significant enough to necessitate multiple fluid boluses and vasopressor support with levophed for several hours in the ICU. The hypotension has been the primary focus of acute management given its severity and need for intensive monitoring. Plan: - Continue IV fluid resuscitation - Repeat labs to be ordered in the morning - Admission for further observation Acute kidney injury Assessment: Patient developed SILVIA related to vasomotor nephropathy, likely secondary to severe dehydration and hypotension. The kidney injury appears to be prerenal in nature given the clinical context of volume depletion. Plan: - Monitor renal function with repeat labs in the morning - Continue IV fluid resuscitation Acute hypoxic respiratory failure Assessment: Patient experienced brief acute hypoxic respiratory failure in the emergency room, most likely secondary to hypotension. The respiratory failure resolved spontaneously, suggesting it was related to the hemodynamic instability rather than a primary pulmonary process. Plan: - Continue monitoring respiratory status during admission Generalized weakness and dizziness Assessment: Patient experienced generalized weakness and dizziness for the past week, which led to a fall prior to hospital arrival. These symptoms appear to be related to the underlying severe dehydration and resulting hypotension. Plan: - Monitor symptoms during admission - Address underlying dehydration and hypotension Plan discussed with: Patient Code Visit Code Visit Total Time (mins): 45 TOÑO ROONEY NP Dec 07, 2024 19:07
--- NOTE | 2024-12-08 11:42 | DVHINCON2 ---
Date of service: Dec 08, 2024 History of Present Illness HPI Patient is a 64-year-old female who reportedly presented to the hospital with presyncope/syncope. Detailed information is not available. There was no note from the emergency room available in the chart. Information was obtained by talking to the emergency room physician and patient/family members. It seems that there is a communication issue in emergency room documentation and information is not transferred/documented. It seems that the patient presented with hypotension and received IV fluid and was on Levophed for awhile. There is no report of chest pain/palpitations. Patient herself mentions some dizziness. Family members mentioned hypotension going back for few days (hours per spouse, blood pressure was in 70s at home). Patient herself denies history of hy pertension but review of the patient's medication list includes lisinopril that points toward component of hypertension as outpatient. Patient and spouse deny any previous cardiac history. Past medical history includes history of TIA. Patient is morbidly obese. Home Meds Active Scripts Aspirin (Aspirin Low Dose) 81 Mg Tab, 81 MG PO DAILY for 100 Days, #100 TAB Prov:MARIA DEL ROSARIO CALLOWAY MD 01/21/23 Ondansetron (Zofran) 4 Mg Tab, 4 MG PO Q8HPRN PRN, #14 MG Prov:JACLYN BRADY MD 06/06/22 Meclizine HCl (Meclizine) 25 Mg Chw, 25 MG PO Q8HPRN PRN, #14 CHW Prov:JACLYN BRADY MD 06/06/22 Reported Medications Buspirone HCl (Buspirone Hydrochloride) 15 Mg Tab, 1 TAB PO TID 04/18/22 Lisinopril (Lisinopril) 2.5 Mg Tab, 1 TAB PO DAILY 04/18/22 Olanzapine (OLANZAPINE) 15 Mg Tab, 1 TAB PO 04/18/22 Pregabalin (Pregabalin) 75 Mg Cap, 1 CAP PO BID 04/18/22 Trazodone Hcl (Trazodone Hcl) 100 Mg Tab, 1 TAB PO 04/18/22 Sertraline Hcl (Sertraline Hcl) 100 Mg Tab, 1 TAB PO DAILY 04/18/22 Past Medical History Others Past medical history includes morbid obesity, diabetes mellitus, hyperlipidemia, old history of TIA, hypertension (as per outside medication list), bipolar/anxiety disorder and history of tonsillectomy/C- section/cholecystectomy/tummy tuck. Echocardiogram of January 2023 had reported ejection fraction of 55%, mild TR/MR and right ventricular systolic pressure of 25 mm Hg Patient Family History: Diabetes mellitus G8 MOTHER Hypertension G8 MOTHER Smoker: No Hx (Negative) Alocohol: None Drugs: None Review of Systems Constitutional: No symptom reported Ears, Nose, & Throat: No symptom reported All Other Systems Fourteen point review of system was performed. Relevant findings as per above and as per HPI. Otherwise negative H&P Exam Vital Signs Vital Signs Date Time Temp Pulse Resp B/P (MAP) Pulse Ox O2 Delivery O2 Flow Rate FiO2 12/08/24 07:34 66 11 96 Room Air* 0 21 12/08/24 07:34 97.7 117/59 (78) 97.7 General Appeara: Well developed, Obese Head Exam: Normal inspection Neck Exam: Normal inspection Eye Exam: bilateral eye PERRL Mouth: Normal Inspection Pulmonary/Respiratory: Lungs clear Cardiovascular/Chest: Regular rate, Systolic murmur Peripheral Pulses: 2+ carotid (R), 2+ carotid (L), 2+ femoral (R), 2+ femoral (L), 2+ dorsalis pedis (R), 2+ dorsalis pedis (L) Abdominal Exam: Normal bowel sounds, Soft Neuro/Mental St: Alert, Oriented Appearance: Appropriate appearance Eye contact/ Speech: Cooperative Labs/Xrays Labs Test 12/08/24 04:26 12/07/24 16:07 12/07/24 15:22 12/07/24 15:08 Range/Units White Blood Count 5.7 4.4-10.8 10^3/uL Red Blood Count 4.33 4.0-5.20 10^6/uL Hemoglobin 12.3 12.2-16.2 g/dL Hematocrit 37.8 36.0-46.0 % Mean Corpuscular Volume 87.3 80.0-100.0 fL Mean Corpuscular Hemoglobin 28.3 28.0-32.0 pg Mean Corpuscular Hemoglobin Concent 32.4 32.0-36.0 g/dL Red Cell Distribution Width 16.6 H 11.8-14.3 % Platelet Count 174 140-450 10^3/uL Mean Platelet Volume 8.5 6.9-10.8 fL Neutrophils (%) (Auto) 63.5 37.0-80.0 % Lymphocytes (%) (Auto) 25.7 10.0-50.0 % Monocytes (%) (Auto) 8.0 0.0-12.0 % Eosinophils (%) (Auto) 2.3 0.0-7.0 % Basophils (%) (Auto) 0.5 0.0-2.0 % Neutrophils # (Auto) 3.6 1.6-8.6 10 ^3/uL Lymphocytes # (Auto) 1.5 0.4-5.4 10 ^3/uL Monocytes # (Auto) 0.5 0-1.3 10 ^3/uL Eosinophils # (Auto) 0.1 0-0.8 10 ^3/uL Basophils # (Auto) 0 0-0.2 10 ^3/uL Nucleated Red Blood Cells 0.1 % Sodium Level 143 136-145 mmol/L Potassium Level 4.4 3.5-5.1 mmol/L Chloride Level 110 H 98-107 mmol/L Carbon Dioxide Level 22 20-31 mmol/L Anion Gap 11 5-15 Blood Urea Nitrogen 25 #H 9-23 mg/dL Creatinine 0.87 # 0.550-1.02 mg/dL Glomerular Filtration Rate Calc 73 >90 mL/min BUN/Creatinine Ratio 28.7 H 10.0-20.0 Serum Glucose 74 74-106 mg/dL Calcium Level 8.4 L 8.7-10.4 mg/dL Total Bilirubin 1.4 H 0.2-1.0 mg/dL Aspartate Amino Transferase (AST) 66 H 13-40 U/L Alanine Aminotransferase (ALT) 51 H 7-40 U/L Alkaline Phosphatase 118 H 46-116 U/L Total Protein 5.5 L 5.7-8.2 g/dL Albumin 3.5 3.2-4.8 g/dL POC Glucose 88 70-106 mg/dl Urine Color Light-yellow Yellow Urine Clarity Turbid H Clear Urine pH 5.0 5.0-9.0 Urine Specific [place] 1.006 1.001-1.035 Urine Protein Negative Negative Urine Ketones Negative Negative Urine Blood Trace H Negative /uL Urine Nitrite Negative Negative Urine Bilirubin Negative Negative Urine Urobilinogen Normal Negative mg/dL Urine Leukocyte Esterase 1+ Negative /uL Urine RBC 1 0 - 4 /hpf Urine Microscopic WBC 4 0-5 /HPF Urine Squamous Epithelial Cells Few <5 /hpf Urine Bacteria Few H None Seen /hpf Urine Hyaline Casts Few 0 - 2 /lpf Urine Glucose Normal Normal mg/dL Troponin I High Sensitivity 7 </=34 ng/L Test 12/07/24 12:06 Range/Units Lactic Acid Level 1.4 0.4-2.0 mmol/L B-Type Natriuretic Peptide 8.82 0-100 pg/mL Assessment/Plan Plan Patient is a 64-year-old female who reportedly presented to the hospital with presyncope/syncope. Detailed information is not available. There was no note from the emergency room available in the chart. Information was obtained by talking to the emergency room physician and patient/family members. It seems that there is a communication issue in emergency room documentation and information is not transferred/documented. It seems that the patient presented with hypotension and received IV fluid and was on Levophed for awhile. There is no report of chest pain/palpitations. Patient herself mentions some dizziness. Family members mentioned hypotension going back for few days (hours per spouse, blood pressure was in 70s at home). Patient herself denies history of hypertension but review of the patient's medication list includes lisinopril that points toward component of hypertension as outpatient. Patient and spouse deny any previous cardiac history. Past medical history includes history of TIA. Patient is morbidly obese. Morbidly obese. Lying flat in bed. Alert and oriented x4. No JVD. Mucosa is pink and wet. No carotid bruit. No goiter. Lungs are clear to auscultation. Not using accessory muscles of breathing. Cardiac: Regular, no thrill/gallop. Abdomen is soft and obese. Bowel sound is positive. No gross mass is felt. Can not rule out presence of hepatomegaly/mass (body habitus). There is no peripheral edema. Dorsalis pedis is 2+. No gross lateralized neurologic deficit. Past medical history includes morbid obesity, diabetes mellitus, hyperlipidemia, old history of TIA, hypertension (as per outside medication list), bipolar/anxiety disorder and history of tonsillectomy/C- section/cholecystectomy/tummy tuck. Echocardiogram of January 2023 had reported ejection fraction of 55%, mild TR/MR and right ventricular systolic pressure of 25 mm Hg Creatinine: 2.45 - 0.87 Potassium: 4.4 - 4.4 AST/ALT: 66/51 Troponin (high sensitive): 4 - 4 - 7 BNP: 8.82 Chest x-ray revealed: IMPRESSION: 1. Interval development of bilateral increased interstitial prominence which may reflect pulmonary vascular congestion or atypical infection. Renal ultrasound revealed: IMPRESSION: Normal sonographic appearance of the kidneys. No hydronephrosis. EKG revealed sinus rhythm with no specific ST-T changes Tele reveals sinus rhythm Patient is a 64-year-old morbidly obese female who presented with hypotension/presyncope. Received IV fluid/Levophed for awhile. Presentation questions encephalopathy/metabolic possibly related to hypotension. Reason for hypertension is not found yet. Could be secondary to over medication? Arrival creatinine was elevated but repeat creatinine was normal. Could it be lab mistake? Or could be secondary to hypotension? Cardiac etiology of presentation is less likely but can not be ruled out. She also is found to have abnormal LFT Hypotension Encephalopathy, metabolic? Presyncope Diabetes mellitus Morbid obesity Hyperlipidemia History of TIA Abnormal LFT Cardiac suggestion for management: Manage on telemetry Fluid resuscitation Follow-up electrolytes and kidney function tests and correct abnormalities Echocardiogram Long-term monitor can be arranged as outpatient Consider GI evaluation. Consider Nephrology evaluation. Consider abdominal imaging for abnormal LFT. Avoid antihypertensive medications at this point Further evaluation and management depends on the above and clinical course Thank you for consultation A total of 75 minutes was spent reviewing the patient record, examining the patient, making a diagnostic and therapeutic plan, discussing this plan with medical personnel, following up on diagnostic studies and following the patient for clinical stability excluding any and all procedures. At least 50% of this time was spent in direct, [id number] contact. Thank you for allowing me to participate in this patient's care. Further recommendations will depend on patient's clinical course. Please do not hesitate to contact me if you have any questions or concerns. This medical document was created using electronic medical record system with [employer] dictation system. Although this document has been carefully reviewed, there may still be some phonetic and typographical errors. These areas are purely typographical due to the imperfection of the software programs, and do not reflect any compromise in the patient's medical care. Plan discussed with: Patient, Spouse (at bedside), Other (nurse) LACEY FRAUSTO MD Dec 08, 2024 09:07
--- NOTE | 2024-12-08 12:40 | DVHDS2 ---
Discharge Summary Date of Admission Dec 07, 2024 at 19:13 Date of Discharge: Dec 08, 2024 Admitting Diagnosis SILVIA r/t VMN-resolved with aggressive fluid resuscitation Hypotension related to dehydration and possible overmedication. Patient found to have polypharmacy and was given Narcan by EMS Chronic back pain Acute hypoxic respiratory failure-most likely related to overmedication and hypotension-resolved Wounds: none Labs/Diagnostic Data: Laboratory Results Test 12/08/24 04:26 12/07/24 16:07 12/07/24 15:22 12/07/24 15:08 White Blood Count 5.7 10^3/uL (4.4-10.8) Red Blood Count 4.33 10^6/uL (4.0-5.20) Hemoglobin 12.3 g/dL (12.2-16.2) Hematocrit 37.8 % (36.0-46.0) Mean Corpuscular Volume 87.3 fL (80.0-100.0) Mean Corpuscular Hemoglobin 28.3 pg (28.0-32.0) Mean Corpuscular Hemoglobin Concent 32.4 g/dL (32.0-36.0) Red Cell Distribution Width 16.6 % (11.8-14.3) Platelet Count 174 10^3/uL (140-450) Mean Platelet Volume 8.5 fL (6.9-10.8) Neutrophils (%) (Auto) 63.5 % (37.0-80.0) Lymphocytes (%) (Auto) 25.7 % (10.0-50.0) Monocytes (%) (Auto) 8.0 % (0.0-12.0) Eosinophils (%) (Auto) 2.3 % (0.0-7.0) Basophils (%) (Auto) 0.5 % (0.0-2.0) Neutrophils # (Auto) 3.6 10 ^3/uL (1.6-8.6) Lymphocytes # (Auto) 1.5 10 ^3/uL (0.4-5.4) Monocytes # (Auto) 0.5 10 ^3/uL (0-1.3) Eosinophils # (Auto) 0.1 10 ^3/uL (0-0.8) Basophils # (Auto) 0 10 ^3/uL (0-0.2) Nucleated Red Blood Cells 0.1 % Sodium Level 143 mmol/L (136-145) Potassium Level 4.4 mmol/L (3.5-5.1) Chloride Level 110 mmol/L (98-107) Carbon Dioxide Level 22 mmol/L (20-31) Anion Gap 11 (5-15) Blood Urea Nitrogen 25 mg/dL (9-23) Creatinine 0.87 mg/dL (0.550-1.02) Glomerular Filtration Rate Calc 73 mL/min (>90) BUN/Creatinine Ratio 28.7 (10.0-20.0) Serum Glucose 74 mg/dL (74-106) Calcium Level 8.4 mg/dL (8.7-10.4) Total Bilirubin 1.4 mg/dL (0.2-1.0) Aspartate Amino Transferase (AST) 66 U/L (13-40) Alanine Aminotransferase (ALT) 51 U/L (7-40) Alkaline Phosphatase 118 U/L (46-116) Total Protein 5.5 g/dL (5.7-8.2) Albumin 3.5 g/dL (3.2-4.8) POC Glucose 88 mg/dl (70-106) Urine Color Light-yellow (Yellow) Urine Clarity Turbid (Clear) Urine pH 5.0 (5.0-9.0) Urine Specific [place] 1.006 (1.001-1.035) Urine Protein Negative (Negative) Urine Ketones Negative (Negative) Urine Blood Trace /uL (Negative) Urine Nitrite Negative (Negative) Urine Bilirubin Negative (Negative) Urine Urobilinogen Normal mg/dL (Negative) Urine Leukocyte Esterase 1+ /uL (Negative) Urine RBC 1 /hpf (0 - 4) Urine Microscopic WBC 4 /HPF (0-5) Urine Squamous Epithelial Cells Few /hpf (<5) Urine Bacteria Few /hpf (None Seen) Urine Hyaline Casts Few /lpf (0 - 2) Urine Glucose Normal mg/dL (Normal) Troponin I High Sensitivity 7 ng/L (</=34) Test 12/07/24 12:06 Lactic Acid Level 1.4 mmol/L (0.4-2.0) B-Type Natriuretic Peptide 8.82 pg/mL (0-100) Other Laboratory Tests 12/08/24 04:26 Brief Hx & Hospital Course: This is a 64-year-old female that presented to the emergency room with complaints of fall. Patient found to have hypotension and acute hypoxic respiratory failure. Acute kidney injury related to dehydration and low blood pressure. Patient found to have polypharmacy. Patient was seeing pain management for chronic back pain. Pain management was reportedly prescribing benzodiazepines. Patient also receiving trazodone and Lyrica along with pain medications. Kidney function now within normal limits after aggressive fluid resuscitation. She was placed briefly in ICU for Levophed due to hypotension. Respiratory failure resolved immediately in the emergency room. Patient was instructed to stop Xanax. I discussed plan of care with [facility] physicians and they will f/u and discuss plan to taper off some of her medications. Patient felt well with no complaints of dizziness and was able to ambulate after evaluation by physical therapy. She was cleared for discharge with close follow up with [place] physician Dr. Frazier. Operations or Procedures none Condition at Discharge: Good Final Diagnosis/Problems List Dehydration Acute hypoxic respiratory failure-resolved in the emergency room SILVIA with VMN-resolved with IVF Polypharmacy-discussed with her PCP Discharge Disposition: Home SNF Discharge Physician in charge at time of: Dr. Reagan Will this Physician continue t: Yes Discharge Instruct/Medications Diet: Cardiac 2g Na,low cholest Activity: No Restrictions, As Tolerated Follow Up/Referral: PCP 1 WEEK Medications: CONTINUE MEDS PCP TO WEAN OFF SOME MEDS DUE TO OVERSEDATION Scheduled Aspirin (Aspirin Low Dose), 81 MG PO DAILY Buspirone HCl (Buspirone Hydrochloride), 1 TAB PO TID, (Reported) Lisinopril (Lisinopril), 1 TAB PO DAILY, (Reported) Pregabalin (Pregabalin), 1 CAP PO BID, (Reported) Sertraline Hcl (Sertraline Hcl), 1 TAB PO DAILY, (Reported) Scheduled PRN Meclizine HCl (Meclizine), 25 MG PO Q8HPRN PRN Ondansetron (Zofran), 4 MG PO Q8HPRN PRN Miscellaneous Medications Olanzapine (Olanzapine), 1 TAB PO, (Reported) Trazodone Hcl (Trazodone Hcl), 1 TAB PO, (Reported) 45 Discharge Statement: "Patient was advised to return to the ER or call 911 if any headaches, dizziness, shortness of breath, chest pain, abdominal pain, bleeding, fevers, or worsening of medical condition. Patient was counseled about treatment plan, medications, possible side effects, patientverbalized understanding. All questions were answered to the best of my ability. This discharge took greater then 30 minutes in planning, reviewing documentation, counseling the patient, and discussing with other team members." ASSESSMENT ASSESSMENT Assessment DEHYDRATION SILVIA WITH VMN- KIDNEY FUNCTION BACK TO NORMAL WITH IV FLUIDS TO[employer] Dec 08, 2024 12:40
--- NOTE | 2024-12-08 16:45 | DVHSR ---
APPROVED REPORT EXAM: Two-dimensional and M-mode echocardiogram with Doppler and color Doppler. Blood Pressure: 119/78 mmHg INDICATION Eval RISK FACTORS Height: 5', Weight: 220 DIMENSIONS LVDd4.4 (3.8-5.7cm)LA (2D)3.7 (1.9-4.0cm)Aortic Root2.8 (2.0-3.7cm) LVDs2.8 (2.5-4.0cm)LA (MM) (1.9-4.0cm)Aortic Cusp Exc1.5 (1.5-2.0cm) EF (%) 65.0 (55-70%)Rt. Atrium3.8 (1.9-4.0cm)Asc. Aorta cm IVSd1.1 (0.7-1.1cm)RV (D) (1.8-2.4cm) PWd1.0 (0.7-1.1cm) Mitral Valve MitralMitral Stenosis E wave1.00m/sMV Mean GR.mmHg A wave1.10m/sMV Peak GR.mmHg E/A ratio0.92D MVAcm2 Aortic Valve Aortic ValveAortic Stenosis V11.50m/[place]eron[place] Mean GR.11mmHg V22.30m/[place]eron[place] Peak GR.22mmHg LVOT Diameter2.2 (1.8-2.4cm)Doppler AVA2.48cm2 Pulmonic Valve V20.60m/s Tricuspid Valve TR Velocity2.30m/s [id number] Conclusion Left ventricle: Mild concentric left ventricular hypertrophy was seen. LVEF was around 65%. There was no gross wall motion abnormality. Diastolic function was considered normal for age. Right ventricle: Right ventricle was normal-sized with normal systolic function. Both atria were no rmal-sized. Aortic valve: Aortic valve was not well visualized. There was no aortic insufficiency/stenosis. Th ere was trace mitral regurgitation. There was mild tricuspid regurgitation. Pulmonary valve did not reveal any insufficiency. IVC was normal-sized with normal respiratory variation. Right ventricular systolic pressure was assessed normal at 28 mm Hg.
== END 2024-12-08 15:43 | disposition home or self-care (01) ==
LOC: EDBD 11:26 → ER 11:26 → OVERFLOW 19:13 → TELE-WESTW 12-08 09:04
PROVIDERS: ADMIT Nurse Practitioner; ATTEND Nurse Practitioner
DX: E86.0 Dehydration (principal); N17.0 Acute kidney failure with tubular necrosis; R57.1 Hypovolemic shock; J96.01 Acute respiratory failure with hypoxia; I10 Essential (primary) hypertension; F31.9 Bipolar disorder, unspecified; E78.5 Hyperlipidemia, unspecified; E11.9 Type 2 diabetes mellitus without complications; G93.41 Metabolic encephalopathy; I95.89 Other hypotension; R55 Syncope and collapse; F41.9 Anxiety disorder, unspecified; R60.1 Generalized edema; E66.01 Morbid (severe) obesity due to excess calories; Z79.899 Other long term (current) drug therapy; Z86.73 Personal history of transient ischemic attack (TIA), and cerebral infarction without residual deficits; Z87.891 Personal history of nicotine dependence; Z90.49 Acquired absence of other specified parts of digestive tract; Z98.890 Other specified postprocedural states; Z68.41 Body mass index [BMI] 40.0-44.9, adult
CPT/HCPCS: 36415; 71045; 76775; 80048; 80053; 81001; 82962; 83605; 83880; 84484; 85025; 87040; 93005; 93306; 96361; 96365; 96367; 96375; 96376; 97163; 99291; G0378; J0696; J2312